=== PATIENT | female | born 1945 | race African-American/Black ===

== ENCOUNTER 2017-11-06 11:14 | Inpatient (IN) | payer BC, OTHER ==
[2017-11-06 11:19] VITALS: BMI 34.3
--- NOTE | 2017-11-06 11:22 | PDOC ---
History of Present Illness <Topher Obrien - Last Filed: 11/06/17 15:25> - General History Source: Patient Exam Limitations: No Limitations - History of Present Illness Initial Comments: 11/06/17 11:53 The patient is a 71 year old female, with a significant past medical history of Atrial Fibrillation (on Diltizem and Coumadin) COPD, DM, HTN, HLD, CAD (s/p 2 stents), Sleep apnea who presents to the emergency department with SOB this morning. Patient reports URI symptoms with productive cough, nasal congestion, clear rhinorrhea and sore throat. Patient reports her symptoms worsened this morning with persistent SOB. Patient reports SOB is worse when talking and exertion. Patient denies any chest pain, palpitations, nausea, diaphoresis, LE edema, headache, dizziness. Patient denies fever, chills, abdominal pain, vomit, diarrhea or constipation. Patient denies dysuria, frequency, urgency or hematuria. Patient denies sick contacts or recent travel. Allergies: codeine, morphine, cephalexin monohydrate Past surgical history: Two stent placement, mitral valve replacement (porcine) Social history: Former smoker (quit 15 years ago) PCP: [place] <Jerrica Casiano - Last Filed: 11/06/17 16:44> - General Chief Complaint: Shortness of Breath Stated Complaint: SOB Time Seen by Provider: 11/06/17 11:21 Past History - Past Medical History Cardiac Disorders: Yes (a.ina) COPD: Yes Diabetes: Yes HTN: Yes Hypercholesterolemia: Yes Other medical history: sleep apnea - Surgical History Cardiac Surgery: Yes (mitral valve replacement, 2 stents) - Suicide/Smoking/Psychosocial Hx Smoking History: Never smoked Information on smoking cessation initiated: No Hx Alcohol Use: No Drug/Substance Use Hx: No Substance Use Type: None <Topher Obrien - Last Filed: 11/06/17 15:25> <Jerrica Casiano - Last Filed: 11/06/17 16:44> - Past Medical History Allergies/Adverse Reactions: Allergies Allergy/AdvReac Type Severity Reaction Status Date / Time cephalexin monohydrate Allergy Verified 11/06/17 11:15 [From Keflex] codeine Allergy Verified 11/06/17 11:15 morphine Allergy Verified 11/06/17 11:15 Home Medications: Ambulatory Orders Atorvastatin Ca [Lipitor] 40 mg PO HS 11/06/17 Diltiazem HCl [Diltiazem 24Hr Cd] 360 mg PO DAILY 11/06/17 Losartan Potassium 25 mg PO DAILY 11/06/17 Metformin HCl 500 mg PO BID 11/06/17 Methimazole 5 mg PO MOFR 11/06/17 Pantoprazole Sodium [Protonix] 40 mg PO DAILY 11/06/17 Propranolol HCl 40 mg PO BID 11/06/17 Ticagrelor [Brilinta] 90 mg PO DAILY 11/06/17 Warfarin Sodium 6 mg PO HS 11/06/17 Review of Systems - Review of Systems Able to Perform ROS?: Yes Comments:: 11/06/17 11:53 GENERAL/CONSTITUTIONAL: No fever or chills. No weakness. HEAD, EYES, EARS, NOSE AND THROAT: No change in vision. No ear pain or discharge. No sore throat. CARDIOVASCULAR: No chest pain. +shortness of breath. RESPIRATORY: + cough. No wheezing, or hemoptysis. GASTROINTESTINAL: No nausea, vomiting, diarrhea or constipation. GENITOURINARY: No dysuria, frequency, or change in urination. MUSCULOSKELETAL: No joint or muscle swelling or pain. No neck or back pain. SKIN: No rash NEUROLOGIC: No headache, vertigo, loss of consciousness, or change in strength/ sensation. ENDOCRINE: No increased thirst. No abnormal weight change. HEMATOLOGIC/LYMPHATIC: No anemia, easy bleeding, or history of blood clots. ALLERGIC/IMMUNOLOGIC: No hives or skin allergy. <Jerrica Casiano - Last Filed: 11/06/17 16:44> *Physical Exam - Vital Signs Last Vital Signs Temp Pulse Resp BP Pulse Ox 97.7 F 108 H 18 133/67 100 11/06/17 11:16 11/06/17 11:16 11/06/17 11:16 11/06/17 11:16 11/06/17 11:16 <Topher Obrien - Last Filed: 11/06/17 15:25> - Vital Signs Last Vital Signs Temp Pulse Resp BP Pulse Ox 97.7 F 108 H 18 133/67 100 11/06/17 11:16 11/06/17 11:16 11/06/17 11:16 11/06/17 11:16 11/06/17 11:16 - Physical Exam Comments: 11/06/17 11:53 GENERAL: Awake, alert, and fully oriented, in no acute distress HEAD: No signs of trauma EYES: PERRLA, EOMI, sclera anicteric, conjunctiva clear ENT: Auricles normal inspection, hearing grossly normal, nares patent, oropharynx clear without exudates. Moist mucosa NECK: +JVD. Normal ROM, supple, no lymphadenopathy, or masses LUNGS: +Rales. Breath sounds equal. No wheezes, and no crackles. HEART: +Irregular irregular.Normal S1 and S2, no murmurs, rubs or gallops ABDOMEN: Soft, nontender, normoactive bowel sounds. No guarding, no rebound. No masses EXTREMITIES: Normal range of motion, no edema. No clubbing or cyanosis. No cords, erythema, or tenderness NEUROLOGICAL: Cranial nerves II through XII grossly intact. Normal speech, normal gait SKIN: Warm, Dry, normal turgor, no rashes or lesions noted. <Jerrica Casiano - Last Filed: 11/06/17 16:44> Heart Score/ECG Review - History History: Moderately suspicious - Electrocardiogram EKG: Non specific repolarization disturbance - Age Age: >/= 65 - Risk Factors Risk Factors Heart Score: Yes Hx Hypercholesterolemia, Yes Hx Hypertension, Yes Hx Diabetes Based on the list above the patient has:: >/=3 risk factors or Hx atherosclerotic disease - Troponin Troponin: </= normal limit - Score Heart Score - Total: 6 <Topher Obrien - Last Filed: 11/06/17 15:25> #1 11/06/17 12:[address] Obrien Atrial flutter with variable AV block <Jerrica Casiano - Last Filed: 11/06/17 16:44> ED Treatment Course - LABORATORY CBC & Chemistry Diagram: 11/06/17 12:00 11/06/17 12:00 <Topher Obrien - Last Filed: 11/06/17 15:25> - LABORATORY CBC & Chemistry Diagram: 11/06/17 12:00 11/06/17 12:00 <Jerrica Casiano - Last Filed: 11/06/17 16:44> Medical Decision Making - Medical Decision Making 11/06/17 15:17 Dr. Jensen paged via phone answering service. Awaiting call back. 11/06/17 15:43 Camila returned the page and the patients case was discussed. CXR IMPRESSION: CHF Reported By: Geno <Jerrica Casiano - Last Filed: 11/06/17 16:44> *DC/Admit/Observation/Transfer - Discharge Dispostion Admit: Yes - Attestations Physician Attestion: 11/06/17 11:22 I, Dr. Topher Obrien, attest that this document has been prepared under my direction and personally reviewed by me in its entirety. I further attest, that it accurately reflects all work, treatment, procedures and medical decision -making performed by me. <Topher Obrien - Last Filed: 11/06/17 15:25> - Attestations Scribe Attestion: 11/06/17 11:54 Documentation prepared by Jerrica Casiano, acting as medical office rep for Topher Obrien DO. <Jerrica Casiano - Last Filed: 11/06/17 16:44> Diagnosis at time of Disposition: CHF (congestive heart failure) Qualifiers: Congestive heart failure type: combined Congestive heart failure chronicity: acute on chronic Qualified Code(s): I50.43 - Acute on chronic combined systolic (congestive) and diastolic (congestive) heart failure Pneumonia Qualifiers: Pneumonia type: due to unspecified organism Laterality: right Lung location: lower lobe of lung Qualified Code(s): J18.1 - Lobar pneumonia, unspecified organism - Discharge Dispostion Condition at time of disposition: Improved
[2017-11-06] MEDS ORDERED: ALBUTEROL SO4 2.5/IPRATROPIUM 0.5 INH SOL 3 ML VIAL.NEB. NEB ONE ×2 (11:38→12:08)
[2017-11-06] MEDS ORDERED: FUROSEMIDE 40 MG/4 ML INJECTABLE VIAL IVPUSH ONE ×2 (11:38→15:16)
[2017-11-06] MEDS ORDERED: methylPREDNISolone NA SUCC 125 MG/2 ML VIAL IVPUSH ONE (11:38)
[2017-11-06] MEDS ORDERED: ALBUTEROL SO4 0.083% IH SOL 2.5 MG/3 ML VIAL.NEB. NEB ONE (11:38)
[2017-11-06] MEDS ORDERED: FUROSEMIDE 40 MG/4 ML INJECTABLE VIAL ONE ×2 (12:08→15:49)
[2017-11-06] MEDS ORDERED: methylPREDNISolone NA SUCC 125 MG/2 ML VIAL ONE (12:08)
[2017-11-06 12:09] LABS: BASOPHIL 0.9 % (0-2.0); MCHC 30.6 g/dl (32.0-36.0); MEAN CELL VOLUME 63.9 fl (80-96); MEAN PLT VOLUME 8.5 fl (7.5-11.1); NEUTROPHILS 80.1 % (42.8-82.8); PLATELET COUNT 781 K/MM3 (134-434); RDW 20.8 % (11.6-15.6); WHITE BLOOD COUNT 15.6 K/mm3 (4.0-10.0)
[2017-11-06 12:13] LABS: URINE APPEARANCE SLCLOUDY; URINE BILIRUBIN NEGATIVE (NEGATIVE); URINE BLOOD NEGATIVE (NEGATIVE); URINE COLOR YELLOW; URINE GLUCOSE (UA) NEGATIVE (NEGATIVE); URINE KETONE NEGATIVE (NEGATIVE); URINE NITRITE NEGATIVE (NEGATIVE); URINE PROTEIN NEGATIVE (NEGATIVE)
[2017-11-06 12:17] LABS: MCH 19.5 pg (25.7-33.7)
[2017-11-06 12:25] LABS: ALBUMIN 3.3 g/dl (3.4-5.0); ANION GAP 5 (8-16); CALCIUM 8.9 mg/dL (8.5-10.1); CO2 28 mmol/L (21-32); GLUCOSE,RANDOM 84 mg/dL (74-106)
[2017-11-06 12:29] LABS: BILIRUBIN,TOTAL 0.6 mg/dL (0.2-1.0); CREATININE 1.2 mg/dL (0.55-1.02); SGOT/AST 15 U/L (15-37); SGPT/ALT 19 U/L (12-78); TOT PROT 7.2 g/dl (6.4-8.2)
[2017-11-06 12:30] LABS: INR 3.74 (0.82-1.09); PROTHROMBIN TIME (PATIENT) 42.3 SEC (9.98-11.88)
[2017-11-06 12:32] LABS: ALK PHOS 101 U/L (45-117); CPK 85 IU/L (26-192); TROPONIN I < 0.02 ng/ml (0.00-0.05)
[2017-11-06 13:49] LABS: ANISOCYTOSIS 3+; HYPOCHROMIA 2+; MACROCYTOSIS 1+; MICROCYTOSIS 2+; OVALOCYTE 2+; PLATELET ESTIMATE INCREASED; POLYCHROMASIA 1+; TARGET CELLS 3+
--- NOTE | 2017-11-06 14:50 | EKG ---
Test Reason : Blood Pressure : / mmHG Vent. Rate : 103 BPM Atrial Rate : 237 BPM P-R Int : 000 ms QRS Dur : 082 ms QT Int : 380 ms P-R-T Axes : 000 018 091 degrees QTc Int : 497 ms ATRIAL FLUTTER WITH VARIABLE A-V BLOCK ABNORMAL ECG WHEN COMPARED WITH ECG OF 09-MAY-2010 15:07, ATRIAL FLUTTER HAS REPLACED SINUS RHYTHM Confirmed by GISELE WARD, VELVET ([id number]) on 11/06/2017 2:50:11 PM Referred By: Confirmed By:VELVET JAQUEZ MD
[2017-11-06] MEDS ORDERED: CEFTRIAXONE 1 GM in DEXTROSE 5%-WATER - 50 ML IVPB ONE (15:16)
[2017-11-06] MEDS ORDERED: AZITHROMYCIN IVPB 500 MG in DEXTROSE 5%-WATER - 250 ML IVPB ONE (15:16)
[2017-11-06] MEDS ORDERED: AZITHROMYCIN IVPB 250 ML IVPB ONE (15:48)
[2017-11-06] MEDS ORDERED: CEFTRIAXONE 1 GM/50 ML BAG ONE (15:48)
[2017-11-06 15:55] LABS: URINE LEUK ESTERASE NEGATIVE (NEGATIVE)
--- NOTE | 2017-11-06 21:46 | HP ---
Admitting History and Physical - Primary Care Physician PCP: Reema Jensen - Admission History of Present Illness: The patient is a 71 year old female, with a significant past medical history of Atrial Fibrillation (on Diltizem and Coumadin) COPD, DM, HTN, HLD, CAD (s/p 2 stents), Sleep apnea who presents to the emergency department with SOB this morning. Patient reports URI symptoms with productive cough, nasal congestion, clear rhinorrhea and sore throat. Patient reports her symptoms worsened this morning with persistent SOB. Patient reports SOB is worse when talking and exertion. - Past Medical History Cardiovascular: Yes: HTN, Hyperlipdemia Pulmonary: Yes: COPD Endocrine: Yes: Diabetes Mellitus - Smoking History Smoking history: Never smoked - Alcohol/Substance Use Hx Alcohol Use: No Home Medications - Allergies Allergies/Adverse Reactions: Allergies Allergy/AdvReac Type Severity Reaction Status Date / Time cephalexin monohydrate Allergy Verified 11/06/17 11:15 [From Keflex] codeine Allergy Verified 11/06/17 11:15 morphine Allergy Verified 11/06/17 11:15 - Home Medications Home Medications: Ambulatory Orders Atorvastatin Ca [Lipitor] 40 mg PO HS 11/06/17 Diltiazem HCl [Diltiazem 24Hr Cd] 360 mg PO DAILY 11/06/17 Losartan Potassium 25 mg PO DAILY 11/06/17 Metformin HCl 500 mg PO BID 11/06/17 Methimazole 5 mg PO MOFR 11/06/17 Pantoprazole Sodium [Protonix] 40 mg PO DAILY 11/06/17 Propranolol HCl 40 mg PO BID 11/06/17 Ticagrelor [Brilinta] 90 mg PO DAILY 11/06/17 Warfarin Sodium 6 mg PO HS 11/06/17 Physical Examination Vital Signs: Vital Signs Temperature 98.7 F 11/06/17 20:24 Pulse Rate 86 11/06/17 20:24 Respiratory Rate 20 11/06/17 20:24 Blood Pressure 146/84 11/06/17 20:24 O2 Sat by Pulse Oximetry (%) 97 11/06/17 20:24 Constitutional: Yes: No Distress HENT: Yes: Atraumatic Neck: Yes: Supple Cardiovascular: Yes: Regular Rate and Rhythm Respiratory: Yes: Rhonchi Gastrointestinal: Yes: Normal Bowel Sounds Extremities: Yes: WNL Neurological: Yes: Alert, Oriented Labs: CBC, BMP 11/06/17 12:00 11/06/17 12:00 Problem List - Problems (1) CHF (congestive heart failure) Assessment/Plan: on meds iv diuretics Code(s): I50.9 - HEART FAILURE, UNSPECIFIED Qualifiers: Congestive heart failure type: combined Congestive heart failure chronicity : acute on chronic Qualified Code(s): I50.43 - Acute on chronic combined systolic (congestive) and diastolic (congestive) heart failure (2) Pneumonia Assessment/Plan: on abx...emperic cxr congestion Code(s): J18.9 - PNEUMONIA, UNSPECIFIED ORGANISM Qualifiers: Pneumonia type: due to unspecified organism Laterality: right Lung location: lower lobe of lung Qualified Code(s): J18.1 - Lobar pneumonia, unspecified organism (3) Atrial fibrillation and flutter Assessment/Plan: meds getting adjusted by cardiology Code(s): I48.91 - UNSPECIFIED ATRIAL FIBRILLATION; I48.92 - UNSPECIFIED ATRIAL FLUTTER (4) Diabetes mellitus Assessment/Plan: on meds stable Code(s): E11.9 - TYPE 2 DIABETES MELLITUS WITHOUT COMPLICATIONS Qualifiers: Diabetes mellitus type: type 2 Diabetes mellitus complication status: without complication Diabetes mellitus vermin exterminator insulin use: without half-way use Qualified Code(s): E11.9 - Type 2 diabetes mellitus without complications (5) HTN (hypertension) Code(s): I10 - ESSENTIAL (PRIMARY) HYPERTENSION Qualifiers: Hypertension type: essential hypertension Qualified Code(s): I10 - Essential (primary) hypertension Assessment/Plan Laboratory Tests 11/06/17 11/06/17 11/06/17 12:00 12:00 12:00 WBC 15.6 H RBC 6.79 H Hgb 13.3 Hct 43.4 MCV 63.9 L MCH 19.5 L MCHC 30.6 L RDW 20.8 H Plt Count 781 H MPV 8.5 Neutrophils % 80.1 Lymphocytes % 8.8 Monocytes % 9.2 Eosinophils % 1.0 Basophils % 0.9 Hypochromia 2+ Platelet Estimate Increased Polychromasia 1+ Anisocytosis 3+ Microcytosis 2+ Macrocytosis 1+ Target Cells 3+ Ovalocytes 2+ PT with INR 42.30 H INR 3.74 H Sodium 139 Potassium 4.5 Chloride 106 Carbon Dioxide 28 Anion Gap 5 L BUN 21 H Creatinine 1.2 H Creat Clearance w eGFR 44.54 Random Glucose 84 Lactic Acid Calcium 8.9 Total Bilirubin 0.6 AST 15 ALT 19 Alkaline Phosphatase 101 Creatine Kinase 85 Troponin I < 0.02 B-Natriuretic Peptide Total Protein 7.2 Albumin 3.3 L Urine Color Urine Appearance Urine pH Ur Specific [place] Urine Protein Urine Glucose (UA) Urine Ketones Urine Blood Urine Nitrite Urine Bilirubin Urine Urobilinogen Ur Leukocyte Esterase 11/06/17 11/06/17 11/06/17 12:00 12:00 12:00 WBC RBC Hgb Hct MCV MCH MCHC RDW Plt Count MPV Neutrophils % Lymphocytes % Monocytes % Eosinophils % Basophils % Hypochromia Platelet Estimate Polychromasia Anisocytosis Microcytosis Macrocytosis Target Cells Ovalocytes PT with INR INR Sodium Potassium Chloride Carbon Dioxide Anion Gap BUN Creatinine Creat Clearance w eGFR Random Glucose Lactic Acid 1.7 Calcium Total Bilirubin AST ALT Alkaline Phosphatase Creatine Kinase Troponin I B-Natriuretic Peptide 2018.47 H Total Protein Albumin Urine Color Yellow Urine Appearance Slcloudy Urine pH 5.0 Ur Specific [place] 1.017 Urine Protein Negative Urine Glucose (UA) Negative Urine Ketones Negative Urine Blood Negative Urine Nitrite Negative Urine Bilirubin Negative Urine Urobilinogen 2.0 H Ur Leukocyte Esterase Negative Active Medications Generic Name Dose Route Start Last Admin Trade Name Freq PRN Reason Stop Dose Admin Atorvastatin Calcium 40 mg 11/06/17 22:00 11/08/17 22:12 Lipitor - PO 40 mg HS BLANKA Administration Diltiazem HCl 360 mg 11/07/17 10:00 11/09/17 09:24 Cardizem Cd - PO 360 mg DAILY BLANKA Administration Furosemide 40 mg 11/08/17 10:45 11/09/17 09:25 Lasix Injection - IVPUSH 40 mg DAILY BLANKA Administration Doxycycline Hyclate 100 mg/ 100 mls @ 50 mls/hr 11/09/17 17:00 11/09/17 18:36 Dextrose IVPB 50 mls/hr BID BLANKA Administration Losartan Potassium 25 mg 11/07/17 10:00 11/09/17 09:25 Cozaar - PO 25 mg DAILY BLANKA Administration Metformin HCl 500 mg 11/07/17 07:00 11/09/17 16:52 Glucophage - PO 500 mg BIDAC BLANKA Administration Methimazole 5 mg 11/07/17 10:00 11/09/17 09:25 Tapazole - PO 5 mg MoTuWeThFr@1000 BLANKA Administration Pantoprazole Sodium 40 mg 11/07/17 10:00 11/09/17 09:25 Protonix - PO 40 mg DAILY BLANKA Administration Sotalol HCl 80 mg 11/09/17 10:45 11/09/17 17:27 Betapace - PO 80 mg BID BLANKA Administration Ticagrelor 90 mg 11/06/17 22:30 11/09/17 09:23 Brilinta - PO 90 mg BID BLANKA Administration Warfarin Sodium 3 mg 11/07/17 18:00 11/09/17 17:27 Coumadin - PO 3 mg DAILY@1800 BLANKA Administration
[2017-11-06] MEDS ORDERED: WARFARIN NA 3 MG TABLET PO SCH (22:00)
[2017-11-06] MEDS: ATORVASTATIN CA 40 MG TABLET (FP) PO SCH (22:25)
[2017-11-06] MEDS: TICAGRELOR 90 MG TABLET PO SCH (22:56)
[2017-11-06] MEDS: PROPRANOLOL HCL 40 MG TABLET PO SCH (22:56)
[2017-11-06 23:30] LABS: PROTHROMBIN TIME (PATIENT) 48.4 SEC (9.98-11.88)
[2017-11-06 23:31] LABS: INR 4.28 (0.82-1.09)
[2017-11-07] MEDS: metFORMIN HCL 500 MG TABLET (FP) PO SCH ×2 (08:03→17:40)
[2017-11-07 08:04] LABS: MEAN CELL VOLUME 63.6 fl (80-96); MEAN PLT VOLUME 8.4 fl (7.5-11.1); PLATELET COUNT 645 K/MM3 (134-434); RDW 21.1 % (11.6-15.6); WHITE BLOOD COUNT 20.3 K/mm3 (4.0-10.0)
[2017-11-07 08:05] LABS: ANION GAP 9 (8-16); CALCIUM 8.8 mg/dL (8.5-10.1); CO2 25 mmol/L (21-32); GLUCOSE,RANDOM 150 mg/dL (74-106); SGPT/ALT 17 U/L (12-78)
[2017-11-07 08:08] LABS: ALK PHOS 91 U/L (45-117); BILIRUBIN,TOTAL 0.5 mg/dL (0.2-1.0); CREATININE 0.9 mg/dL (0.55-1.02); SGOT/AST 11 U/L (15-37)
[2017-11-07 08:10] LABS: MCH 19.7 pg (25.7-33.7)
[2017-11-07 08:40] LABS: INR 3.84 (0.82-1.09); PROTHROMBIN TIME (PATIENT) 43.4 SEC (9.98-11.88)
[2017-11-07] MEDS ORDERED: PT OWN MED DRAWER 7, Y5N ONE (09:21)
[2017-11-07] MEDS: PANTOPRAZOLE 40 MG TABLET (FP) PO SCH (09:35)
[2017-11-07] MEDS: LOSARTAN POTASSIUM 25 MG TABLET PO SCH (09:36)
[2017-11-07] MEDS: PROPRANOLOL HCL 40 MG TABLET PO SCH ×2 (09:36→22:17)
[2017-11-07] MEDS: METHIMAZOLE 5 MG TABLET (FP) PO SCH (09:36)
[2017-11-07] MEDS: LEVOFLOXACIN 500 MG IVPB 500 MG/100 ML BAG IVPB SCH (09:36)
[2017-11-07] MEDS: TICAGRELOR 90 MG TABLET PO SCH ×2 (09:36→22:17)
[2017-11-07 10:41] LABS: METAMYELOCYTE 0 % (0-2); MYELOCYTE 0 % (0-2); PLATELET ESTIMATE INCREASED; REACTIVE LYMPHOCYTES 0 % (0-80)
--- NOTE | 2017-11-07 10:48 | CON.CARD ---
Consult Consult Specialty:: Cardiology Referred by:: Dr. Jensen Reason for Consultation:: Cardiac evaluation - History of Present Illness Chief Complaint: Shortness of breath History of Present Illness: Patient is a 71 year old female with underlying history of hypertension, hypercholesterolemia, diabetes mellitus, obstructive sleep apnea, COPD, coronary artery disease with previous PCI/stent, mitral valve regurgitation s/p MVR with bioprosthesis (1 year ago in [place]) and atrial fibrillation/flutter with previous attempt at synchronized cardioversions. She was seen in our practice 7 years ago before she relocated to [place]. She sees Dr. Rashard Boyle (geriatric personal care aide) in [place]. She presents to [facility] with shortness of breath, productive cough, nasal congestion and sore throat. She was also found to be in atrial flutter with periods of rapid ventricular response. She complains of intermittent chest tightness. She denies fever or chills. She denies paroxysmal nocturnal dyspnea or orthopnea. She denies nausea, vomiting, diarrhea or abdominal pain. She states that she has been scheduled to see an repair specialist in December of 2017 for possible ablation. - History Source History Provided By: Patient, Medical Record Limitations to Obtaining History: No Limitations - Past Medical History Cardio/Vascular: Yes: AFIB, CAD, CHF, HTN, Hyperlipdemia, Mitral Insufficiency, Other (MVR with bioprosthesis) Pulmonary: Yes: COPD, Sleep Apnea Endocrine: Yes: Diabetes Mellitus - Past Surgical History Past Surgical History: Yes: Stent, Valve Replacement - Alcohol/Substance Use Hx Alcohol Use: No - Smoking History Smoking history: Never smoked Home Medications - Allergies Allergies/Adverse Reactions: Allergies Allergy/AdvReac Type Severity Reaction Status Date / Time cephalexin monohydrate Allergy Verified 11/06/17 11:15 [From Keflex] codeine Allergy Verified 11/06/17 11:15 morphine Allergy Verified 11/06/17 11:15 - Home Medications Home Medications: Ambulatory Orders Atorvastatin Ca [Lipitor] 40 mg PO HS 11/06/17 Diltiazem HCl [Diltiazem 24Hr Cd] 360 mg PO DAILY 11/06/17 Losartan Potassium 25 mg PO DAILY 11/06/17 Metformin HCl 500 mg PO BID 11/06/17 Methimazole 5 mg PO MOFR 11/06/17 Pantoprazole Sodium [Protonix] 40 mg PO DAILY 12/11/17 Propranolol HCl 40 mg PO BID 11/06/17 Ticagrelor [Brilinta] 90 mg PO DAILY 11/06/17 Warfarin Sodium 6 mg PO HS 11/06/17 Review of Systems - Review of Systems Constitutional: denies: Chills, Fever Cardiovascular: reports: Chest Pain, Palpitations, Shortness of Breath Respiratory: reports: Cough, SOB, SOB on Exertion. denies: Hemoptysis, Orthopnea, PND Gastrointestinal: denies: Abdominal Pain, Constipation, Diarrhea, Melena, Nausea , Rectal Bleeding, Vomiting Genitourinary: denies: Dysuria, Hematuria Musculoskeletal: denies: Joint Pain Neurological: denies: Dizziness, Headache, Seizure, Syncope, Weakness Vital Signs: Vital Signs Temperature 98.2 F 11/07/17 08:00 Pulse Rate 114 H 11/07/17 08:00 Respiratory Rate 16 11/07/17 08:00 Blood Pressure 116/68 11/07/17 08:00 O2 Sat by Pulse Oximetry (%) 97 11/07/17 03:00 Eyes: Yes: PERRL HENT: Yes: Atraumatic Neck: Yes: Supple Respiratory: Yes: Diminished Gastrointestinal: Yes: Normal Bowel Sounds, Soft. No: Tenderness Cardiovascular: Yes: Tachycardia, Pulse Irregular JVD: No Carotid Bruit: No PMI: Non-Displaced Heart Sounds: Yes: S1, S2. No: Gallop Murmur: Yes: Systolic Murmur, Grade 1 Edema: No - Other Data Labs, Other Data: CBC, BMP 11/07/17 05:05 11/07/17 05:05 INR, PTT INR 3.84 (0.82-1.09) H 11/07/17 08:00 Troponin, BNP 11/06/17 11/06/17 12:00 12:00 Troponin I < 0.02 B-Natriuretic Peptide 2018.47 H Laboratory Results - last 24 hr 11/06/17 11/06/17 11/07/17 12:00 23:10 05:05 WBC 20.3 H D RBC 6.54 H Hgb 12.9 Hct 41.6 MCV 63.6 L MCH 19.7 L MCHC 31.0 L RDW 21.1 H Plt Count 645 H MPV 8.4 Neutrophils % No Result Required. Lymphocytes % No Result Required. PT with INR 48.40 H INR 4.28 H* Sodium Potassium Chloride Carbon Dioxide Anion Gap BUN Creatinine Creat Clearance w eGFR POC Glucometer Random Glucose Calcium Total Bilirubin AST ALT Alkaline Phosphatase Total Protein Albumin Ur Leukocyte Esterase Negative 11/07/17 11/07/17 11/07/17 05:05 07:50 08:00 WBC RBC Hgb Hct MCV MCH MCHC RDW Plt Count MPV Neutrophils % Lymphocytes % PT with INR 43.40 H INR 3.84 H Sodium 137 Potassium 4.4 Chloride 103 Carbon Dioxide 25 Anion Gap 9 BUN 22 H Creatinine 0.9 D Creat Clearance w eGFR > 60 POC Glucometer 145 Random Glucose 150 H D Calcium 8.8 Total Bilirubin 0.5 AST 11 L D ALT 17 Alkaline Phosphatase 91 Total Protein 7.0 Albumin 3.0 L Ur Leukocyte Esterase Atrial flutter with rapid ventricular response Echo: Pending Imaging - Results Chest X-ray: Report Reviewed (CHF) EKG: Report Reviewed Problem List - Problems (1) CAD (coronary artery disease) Code(s): I25.10 - ATHSCL HEART DISEASE OF [place] CORONARY ARTERY W/O ANG PCTRS Qualifiers: Coronary Disease-Associated Artery/Lesion type: [place] artery [place] vs. transplanted heart: [place] heart Associated angina: without angina Qualified Code(s): I25.10 - Atherosclerotic heart disease of [place] coronary artery without angina pectoris (2) History of percutaneous coronary intervention Code(s): Z98.890 - OTHER SPECIFIED POSTPROCEDURAL STATES (3) HTN (hypertension) Code(s): I10 - ESSENTIAL (PRIMARY) HYPERTENSION Qualifiers: Hypertension type: essential hypertension Qualified Code(s): I10 - Essential (primary) hypertension (4) Hypercholesterolemia Code(s): E78.00 - PURE HYPERCHOLESTEROLEMIA, UNSPECIFIED (5) Diabetes mellitus Code(s): E11.9 - TYPE 2 DIABETES MELLITUS WITHOUT COMPLICATIONS Qualifiers: Diabetes mellitus type: type 2 Diabetes mellitus complication status: without complication Diabetes mellitus long term acute care registered nurse insulin use: without correction use Qualified Code(s): E11.9 - Type 2 diabetes mellitus without complications (6) Obstructive sleep apnea Code(s): G47.33 - OBSTRUCTIVE SLEEP APNEA (ADULT) (PEDIATRIC) (7) COPD (chronic obstructive pulmonary disease) Code(s): J44.9 - CHRONIC OBSTRUCTIVE PULMONARY DISEASE, UNSPECIFIED Qualifiers: COPD type: unspecified COPD Qualified Code(s): J44.9 - Chronic obstructive pulmonary disease, unspecified (8) Hyperthyroidism Code(s): E05.90 - THYROTOXICOSIS, UNSP WITHOUT THYROTOXIC CRISIS OR STORM (9) History of mitral valve replacement with bioprosthetic valve Code(s): Z95.3 - PRESENCE OF XENOGENIC HEART VALVE (10) Atrial fibrillation and flutter Code(s): I48.91 - UNSPECIFIED ATRIAL FIBRILLATION; I48.92 - UNSPECIFIED ATRIAL FLUTTER (11) CHF (congestive heart failure) Code(s): I50.9 - HEART FAILURE, UNSPECIFIED Qualifiers: Congestive heart failure type: combined Congestive heart failure chronicity : acute on chronic Qualified Code(s): I50.43 - Acute on chronic combined systolic (congestive) and diastolic (congestive) heart failure (12) Pneumonia Code(s): J18.9 - PNEUMONIA, UNSPECIFIED ORGANISM Qualifiers: Pneumonia type: due to unspecified organism Laterality: right Lung location: lower lobe of lung Qualified Code(s): J18.1 - Lobar pneumonia, unspecified organism Assessment/Plan 1. Atrial flutter with rapid ventricular response, previous failed cardioversion attempt 2. Clinical presentation suggests class 2 NYHA classification LV failure due to above rapid heart rate 3. Coronary artery disease. s/p PCI/stent, angina pectoris 4. Mitral valve disease s/p MVR with bioprosthesis 5. Hypertension/hypertensive cardiovascular disease 6. Hypercholesterolemia 7. Type 2 diabetes mellitus 8. COPD 9. Obstructive sleep apnea 10. Leukocytosis with possible URI vs. pneumonia 11. Hyperthyrodism PLAN: 1. Continue Coumadin and keep INR 2-3 (currently supratherapeutic) 2. Continue rate control with Cardizem CD. Patient is on Inderal, but would consider Sotalol instead if clinically is able to tolerate. Will discuss with the Product Test Specialist in [place] who takes care of her. 3. If initiated on Sotalol, she would need to continue with telemetry monitoring and obtain daily ECG to follow QTc. Further options of repeat synchronized cardioversion may be considered 4. Continue ASA and Brilinta (if PCI is over 1 year, would change it to maintenance dose of 60 mg BID) 5. Continue Losartan 6. Continue Lipitor 7. Sleep apnea management 8. Continue with Tapazole for hyperthyroidism and check TFT 9. Antibiotic coverage Discussed with Dr. Rashard Boyle Further plans are to follow Ramirez Martinez MD
--- NOTE | 2017-11-07 16:07 | CON.ID ---
Consult - History of Present Illness History of Present Illness: Asked to evaluate this 71 year old female, with a significant past medical history of DM, HTN, AFIB, COPD, HLD, CAD s/p stents, sleep apnea who came to the ER with worsening shortness of breath yesterday morning. She denies productive cough, fever, or chills. Had some sore throat but to me denies rhinorrhea, nasal congestion. She normally resides in [place] but came to visit her daughter 2 days ago. Pt denies any sick contacts. In the ER labwork revealed leukocytosis (wbc 15K) and today is more elevated. Remains afebrile. States she is short of breath but is in no acute distress. SOB worse when lying flat. No other specific complaints. She has been started on IV antibiotics and steroids. - History Source History Provided By: Patient Limitations to Obtaining History: No Limitations - Past Medical History Cardio/Vascular: Yes: AFIB, CAD, CHF, HTN, Hyperlipdemia, Mitral Insufficiency, Other (MVR with bioprosthesis) Pulmonary: Yes: COPD, Sleep Apnea Endocrine: Yes: Diabetes Mellitus - Past Surgical History Past Surgical History: Yes: Stent, Valve Replacement - Alcohol/Substance Use Hx Alcohol Use: No - Smoking History Smoking history: Former smoker (quit 15 yrs ago) Have you smoked in the past 12 months: No - Social History History of Recent Travel: Yes (lives in [place], came to visit daughter) Home Medications - Allergies Allergies/Adverse Reactions: Allergies Allergy/AdvReac Type Severity Reaction Status Date / Time cephalexin monohydrate Allergy Verified 11/06/17 11:15 [From Keflex] codeine Allergy Verified 11/06/17 11:15 morphine Allergy Verified 11/06/17 11:15 - Home Medications Home Medications: Ambulatory Orders Atorvastatin Ca [Lipitor] 40 mg PO HS 11/06/17 Diltiazem HCl [Diltiazem 24Hr Cd] 360 mg PO DAILY 11/06/17 Losartan Potassium 25 mg PO DAILY 11/06/17 Metformin HCl 500 mg PO BID 11/06/17 Methimazole 5 mg PO MOFR 11/06/17 Pantoprazole Sodium [Protonix] 40 mg PO DAILY 11/06/17 Propranolol HCl 40 mg PO BID 11/06/17 Ticagrelor [Brilinta] 90 mg PO DAILY 12/11/17 Warfarin Sodium 6 mg PO HS 11/06/17 Review of Systems - Review of Systems Constitutional: reports: No Symptoms HENT: reports: Throat Pain Neck: reports: No Symptoms Cardiovascular: reports: No Symptoms Respiratory: reports: SOB Gastrointestinal: reports: No Symptoms Genitourinary: reports: No Symptoms Integumentary: reports: No Symptoms Neurological: reports: No Symptoms Endocrine: reports: No Symptoms Hematology/Lymphatic: reports: No Symptoms Psychiatric: reports: No Symptoms Physical Exam Vital Signs: Vital Signs Temperature 98.3 F 11/07/17 15:30 Pulse Rate 61 11/07/17 15:30 Respiratory Rate 18 11/07/17 15:30 Blood Pressure 97/58 11/07/17 15:30 O2 Sat by Pulse Oximetry (%) 97 11/07/17 11:00 Constitutional: Yes: No Distress, Calm HENT: Yes: WNL Neck: Yes: Supple Cardiovascular: Yes: Tachycardia Respiratory: Yes: CTA Bilaterally Gastrointestinal: Yes: Normal Bowel Sounds, Soft Renal/: Yes: WNL Musculoskeletal: Yes: WNL Extremities: Yes: WNL Integumentary: Yes: WNL Neurological: Yes: Alert, Oriented Labs: CBC, BMP 11/07/17 05:05 11/07/17 05:05 Urine Cultures - no growth Blood cultures - no growth in 24h Imaging - Results X-ray: Report Reviewed (increased interstitial markings, pulm congestion) Problem List - Problems (1) Atrial fibrillation and flutter Code(s): I48.91 - UNSPECIFIED ATRIAL FIBRILLATION; I48.92 - UNSPECIFIED ATRIAL FLUTTER (2) CAD (coronary artery disease) Code(s): I25.10 - ATHSCL HEART DISEASE OF [place] CORONARY ARTERY W/O ANG PCTRS Qualifiers: Coronary Disease-Associated Artery/Lesion type: [place] artery [place] vs. transplanted heart: [place] heart Associated angina: without angina Qualified Code(s): I25.10 - Atherosclerotic heart disease of [place] coronary artery without angina pectoris (3) CHF (congestive heart failure) Code(s): I50.9 - HEART FAILURE, UNSPECIFIED Qualifiers: Congestive heart failure type: combined Congestive heart failure chronicity : acute on chronic Qualified Code(s): I50.43 - Acute on chronic combined systolic (congestive) and diastolic (congestive) heart failure (4) COPD (chronic obstructive pulmonary disease) Code(s): J44.9 - CHRONIC OBSTRUCTIVE PULMONARY DISEASE, UNSPECIFIED Qualifiers: COPD type: unspecified COPD Qualified Code(s): J44.9 - Chronic obstructive pulmonary disease, unspecified (5) Diabetes mellitus Code(s): E11.9 - TYPE 2 DIABETES MELLITUS WITHOUT COMPLICATIONS Qualifiers: Diabetes mellitus type: type 2 Diabetes mellitus complication status: without complication Diabetes mellitus intermediate insulin use: without intermediate use Qualified Code(s): E11.9 - Type 2 diabetes mellitus without complications (6) HTN (hypertension) Code(s): I10 - ESSENTIAL (PRIMARY) HYPERTENSION Qualifiers: Hypertension type: essential hypertension Qualified Code(s): I10 - Essential (primary) hypertension (7) History of mitral valve replacement with bioprosthetic valve Code(s): Z95.3 - PRESENCE OF XENOGENIC HEART VALVE (8) Hypercholesterolemia Code(s): E78.00 - PURE HYPERCHOLESTEROLEMIA, UNSPECIFIED (9) Obstructive sleep apnea Code(s): G47.33 - OBSTRUCTIVE SLEEP APNEA (ADULT) (PEDIATRIC) Assessment/Plan 71 y.o. female with CAD, HTN, DM, HLD, valve replacement, COPD, AFIB presenting with progressive shortness of breath, leukocytosis -- Possible PNA, more likely CHF -- continue Levaquin for now, monitor wbc trend -- on lasix, solumedrol cont. monitor closely will f/u Thank you
[2017-11-07] MEDS: WARFARIN NA 3 MG TABLET PO SCH (17:01)
--- NOTE | 2017-11-07 20:02 | PN ---
Progress Note, Physician History of Present Illness: no complaints - Current Medication List Current Medications: Active Medications Atorvastatin Calcium (Lipitor -) 40 mg PO HS [facility] Last Admin: 11/06/17 22:25 Dose: 40 mg Diltiazem HCl (Cardizem Cd -) 360 mg PO DAILY [facility] Last Admin: 11/07/17 09:35 Dose: 360 mg Levofloxacin (Levaquin 500 Mg Premixed Ivpb -) 500 mg in 100 mls @ 100 mls/hr IVPB DAILY [facility] Last Admin: 11/07/17 09:36 Dose: 100 mls/hr Losartan Potassium (Cozaar -) 25 mg PO DAILY [facility] Last Admin: 11/07/17 09:36 Dose: 25 mg Metformin HCl (Glucophage -) 500 mg PO BIDAC [facility] Last Admin: 11/07/17 17:40 Dose: 500 mg Methimazole (Tapazole -) 5 mg PO MoTuWeThFr@1000 [facility] Last Admin: 11/07/17 09:36 Dose: 5 mg Pantoprazole Sodium (Protonix -) 40 mg PO DAILY [facility] Last Admin: 11/07/17 09:35 Dose: 40 mg Propranolol HCl (Inderal -) 40 mg PO BID [facility] Last Admin: 11/07/17 09:36 Dose: 40 mg Ticagrelor (Brilinta -) 90 mg PO BID [facility] Last Admin: 11/07/17 09:36 Dose: 90 mg Warfarin Sodium (Coumadin -) 3 mg PO DAILY@1800 [facility] Last Admin: 11/07/17 17:01 Dose: Not Given - Objective Vital Signs: Vital Signs Temperature 97.6 F 11/07/17 17:00 Pulse Rate 62 11/07/17 17:00 Respiratory Rate 20 11/07/17 17:00 Blood Pressure 126/62 11/07/17 17:00 O2 Sat by Pulse Oximetry (%) 97 11/07/17 11:00 Constitutional: Yes: No Distress HENT: Yes: Atraumatic Neck: Yes: Supple Cardiovascular: Yes: Regular Rate and Rhythm Respiratory: Yes: CTA Bilaterally Gastrointestinal: Yes: Normal Bowel Sounds Extremities: Yes: WNL Neurological: Yes: Alert, Oriented Labs: CBC, BMP 11/07/17 05:05 11/07/17 05:05 INR, PTT INR 3.84 (0.82-1.09) H 11/07/17 08:00 Problem List - Problems (1) CHF (congestive heart failure) Assessment/Plan: on meds iv diuretics Code(s): I50.9 - HEART FAILURE, UNSPECIFIED Qualifiers: Congestive heart failure type: combined Congestive heart failure chronicity : acute on chronic Qualified Code(s): I50.43 - Acute on chronic combined systolic (congestive) and diastolic (congestive) heart failure (2) Pneumonia Assessment/Plan: on abx...emperic Code(s): J18.9 - PNEUMONIA, UNSPECIFIED ORGANISM Qualifiers: Pneumonia type: due to unspecified organism Laterality: right Lung location: lower lobe of lung Qualified Code(s): J18.1 - Lobar pneumonia, unspecified organism (3) Atrial fibrillation and flutter Assessment/Plan: meds getting adjusted by cardiology Code(s): I48.91 - UNSPECIFIED ATRIAL FIBRILLATION; I48.92 - UNSPECIFIED ATRIAL FLUTTER (4) CAD (coronary artery disease) Code(s): I25.10 - ATHSCL HEART DISEASE OF [place] CORONARY ARTERY W/O ANG PCTRS Qualifiers: Coronary Disease-Associated Artery/Lesion type: [place] artery [place] vs. transplanted heart: [place] heart Associated angina: without angina Qualified Code(s): I25.10 - Atherosclerotic heart disease of [place] coronary artery without angina pectoris (5) COPD (chronic obstructive pulmonary disease) Code(s): J44.9 - CHRONIC OBSTRUCTIVE PULMONARY DISEASE, UNSPECIFIED Qualifiers: COPD type: unspecified COPD Qualified Code(s): J44.9 - Chronic obstructive pulmonary disease, unspecified (6) Diabetes mellitus Code(s): E11.9 - TYPE 2 DIABETES MELLITUS WITHOUT COMPLICATIONS Qualifiers: Diabetes mellitus type: type 2 Diabetes mellitus complication status: without complication Diabetes mellitus terminal worker insulin use: without chcf use Qualified Code(s): E11.9 - Type 2 diabetes mellitus without complications (7) HTN (hypertension) Assessment/Plan: on meds stable Code(s): I10 - ESSENTIAL (PRIMARY) HYPERTENSION Qualifiers: Hypertension type: essential hypertension Qualified Code(s): I10 - Essential (primary) hypertension
[2017-11-07] MEDS: ATORVASTATIN CA 40 MG TABLET (FP) PO SCH (22:17)
[2017-11-07 22:49] LABS: INR 3.6 (0.82-1.09); PROTHROMBIN TIME (PATIENT) 40.7 SEC (9.98-11.88)
[2017-11-08] MEDS: metFORMIN HCL 500 MG TABLET (FP) PO SCH ×2 (07:05→17:11)
[2017-11-08 08:20] LABS: BASOPHIL 0.5 % (0-2.0); EOSINOPHIL 0.5 % (0-4.5); MCHC 31.4 g/dl (32.0-36.0); MEAN CELL VOLUME 63.3 fl (80-96); MEAN PLT VOLUME 8.5 fl (7.5-11.1); NEUTROPHILS 85.8 % (42.8-82.8); PLATELET COUNT 731 K/MM3 (134-434); RDW 21.1 % (11.6-15.6); WHITE BLOOD COUNT 19.8 K/mm3 (4.0-10.0)
[2017-11-08 08:26] LABS: MCH 19.9 pg (25.7-33.7)
[2017-11-08 08:49] LABS: ANION GAP 9 (8-16); CALCIUM 9.3 mg/dL (8.5-10.1); CO2 24 mmol/L (21-32); GLUCOSE,RANDOM 96 mg/dL (74-106)
[2017-11-08] MEDS ORDERED: PT OWN MED DRAWER 7, Y5N ONE ×2 (08:58→22:10)
[2017-11-08] MEDS: PANTOPRAZOLE 40 MG TABLET (FP) PO SCH (09:22)
[2017-11-08] MEDS: METHIMAZOLE 5 MG TABLET (FP) PO SCH (09:22)
[2017-11-08] MEDS: LOSARTAN POTASSIUM 25 MG TABLET PO SCH (09:22)
[2017-11-08] MEDS: LEVOFLOXACIN 500 MG IVPB 500 MG/100 ML BAG IVPB SCH (09:24)
[2017-11-08 09:42] LABS: ANISOCYTOSIS 3+; HYPOCHROMIA 0; MACROCYTOSIS 0; MICROCYTOSIS 3+; PLATELET ESTIMATE INCREASED; POIKILOCYTOSIS 2+; POLYCHROMASIA 3+; TARGET CELLS 1+
--- NOTE | 2017-11-08 10:25 | PN ---
Progress Note, Physician History of Present Illness: Dyspnea, palpitations without chest tightness, in rapid aflutter. - Current Medication List Current Medications: Active Medications Atorvastatin Calcium (Lipitor -) 40 mg PO HS [facility] Last Admin: 11/07/17 22:17 Dose: 40 mg Diltiazem HCl (Cardizem Cd -) 360 mg PO DAILY [facility] Last Admin: 11/08/17 09:24 Dose: 360 mg Levofloxacin (Levaquin 500 Mg Premixed Ivpb -) 500 mg in 100 mls @ 100 mls/hr IVPB DAILY [facility] Last Admin: 11/08/17 09:24 Dose: 100 mls/hr Losartan Potassium (Cozaar -) 25 mg PO DAILY [facility] Last Admin: 11/08/17 09:22 Dose: 25 mg Metformin HCl (Glucophage -) 500 mg PO BIDAC [facility] Last Admin: 11/08/17 07:05 Dose: 500 mg Methimazole (Tapazole -) 5 mg PO MoTuWeThFr@1000 [facility] Last Admin: 11/08/17 09:22 Dose: 5 mg Pantoprazole Sodium (Protonix -) 40 mg PO DAILY [facility] Last Admin: 11/08/17 09:22 Dose: 40 mg Propranolol HCl (Inderal -) 40 mg PO BID [facility] Last Admin: 11/07/17 22:17 Dose: 40 mg Ticagrelor (Brilinta -) 90 mg PO BID [facility] Last Admin: 11/07/17 22:17 Dose: 90 mg Warfarin Sodium (Coumadin -) 3 mg PO DAILY@1800 [facility] Last Admin: 11/07/17 17:01 Dose: Not Given - Objective Vital Signs: Vital Signs Temperature 97.5 F L 11/08/17 08:25 Pulse Rate 98 H 11/08/17 08:25 Respiratory Rate 18 11/08/17 08:27 Blood Pressure 119/65 11/08/17 08:25 O2 Sat by Pulse Oximetry (%) 97 11/08/17 08:27 Constitutional: Yes: No Distress, Calm Neck: Yes: Supple Cardiovascular: Yes: Tachycardia, Pulse Irregular Respiratory: Yes: Regular, On Nasal O2 Gastrointestinal: Yes: Normal Bowel Sounds, Soft, Abdomen, Obese Edema: No Labs: CBC, BMP 11/08/17 05:45 11/08/17 05:45 INR, PTT INR 3.60 (0.82-1.09) H 11/07/17 22:00 - ....Imaging EKG: Report Reviewed (Tele: Rapid aflutter) Problem List - Problems (1) Acute on chronic diastolic (congestive) heart failure Code(s): I50.33 - ACUTE ON CHRONIC DIASTOLIC (CONGESTIVE) HEART FAILURE (2) Atrial fibrillation and flutter Code(s): I48.91 - UNSPECIFIED ATRIAL FIBRILLATION; I48.92 - UNSPECIFIED ATRIAL FLUTTER (3) COPD (chronic obstructive pulmonary disease) Code(s): J44.9 - CHRONIC OBSTRUCTIVE PULMONARY DISEASE, UNSPECIFIED Qualifiers: COPD type: unspecified COPD Qualified Code(s): J44.9 - Chronic obstructive pulmonary disease, unspecified (4) Diabetes mellitus Code(s): E11.9 - TYPE 2 DIABETES MELLITUS WITHOUT COMPLICATIONS Qualifiers: Diabetes mellitus type: type 2 Diabetes mellitus complication status: without complication Diabetes mellitus superintendent terminal insulin use: without shelter use Qualified Code(s): E11.9 - Type 2 diabetes mellitus without complications (5) HTN (hypertension) Code(s): I10 - ESSENTIAL (PRIMARY) HYPERTENSION Qualifiers: Hypertension type: essential hypertension Qualified Code(s): I10 - Essential (primary) hypertension (6) History of mitral valve replacement with bioprosthetic valve Code(s): Z95.3 - PRESENCE OF XENOGENIC HEART VALVE (7) History of percutaneous coronary intervention Code(s): Z98.890 - OTHER SPECIFIED POSTPROCEDURAL STATES (8) Hypercholesterolemia Code(s): E78.00 - PURE HYPERCHOLESTEROLEMIA, UNSPECIFIED (9) Hyperthyroidism Code(s): E05.90 - THYROTOXICOSIS, UNSP WITHOUT THYROTOXIC CRISIS OR STORM (10) Obstructive sleep apnea Code(s): G47.33 - OBSTRUCTIVE SLEEP APNEA (ADULT) (PEDIATRIC) (11) Chronic anticoagulation Code(s): Z79.01 - HALF-WAY (CURRENT) USE OF ANTICOAGULANTS Assessment/Plan 1. Atrial flutter with rapid ventricular response, previous failed cardioversion attempt 2. Acute on chronic diastolic failure referable to above rapid heart rate 3. Coronary artery disease. s/p PCI/stent, angina pectoris 4. Mitral valve disease s/p MVR with bioprosthesis 5. Hypertension/hypertensive cardiovascular disease 6. Hypercholesterolemia 7. Type 2 diabetes mellitus 8. COPD 9. Obstructive sleep apnea 10. Leukocytosis with possible URI vs. pneumonia (doubt) 11. Hyperthyrodism PLAN: 1. Continue Coumadin and keep INR 2-3 (currently supratherapeutic) 2. Continue rate control with Cardizem CD. Switch Inderal to Metoprolol for better rate-control 3. If initiated on Sotalol, she would need to continue with telemetry monitoring and obtain daily ECG to follow QTc. Further options of repeat synchronized cardioversion may be considered, ROGE-guidance not requires as patient confirms therapeutic INR over last 2 months 4. Continue Brilinta 90 bid (PCI < 1 year) 5. Continue Losartan 25 qd 6. Continue Lipitor 40 qhs 7. Sleep apnea management with cpap 8. Continue with Tapazole for hyperthyroidism and check TSH 9. Consider d/c empiric antibiotic coverage 10. Initiate diuresis with monitor diuretic response, renal fxn and electrolytes 11. Pt to f/u with Dr. Rashard Boyle upn d/c
[2017-11-08] MEDS ORDERED: METOPROLOL TARTRATE 5 MG/5 ML VIAL IVPUSH ONE (10:37)
[2017-11-08] MEDS: FUROSEMIDE 40 MG/4 ML INJECTABLE VIAL IVPUSH SCH (11:31)
[2017-11-08] MEDS: TICAGRELOR 90 MG TABLET PO SCH ×2 (11:31→22:12)
[2017-11-08] MEDS: METOPROLOL TARTRATE 25 MG TABLET (FP) PO SCH ×2 (11:32→22:12)
[2017-11-08] MEDS: PROPRANOLOL HCL 40 MG TABLET PO SCH (11:32)
--- NOTE | 2017-11-08 15:30 | PN ---
Progress Note, Physician History of Present Illness: Events noted. Pt still c/o shortness of breath, no productive cough. O2 sat 98% . Has been having palpitations, now with A flutter. Remains afebrile - Current Medication List Current Medications: Active Medications Atorvastatin Calcium (Lipitor -) 40 mg PO HS [facility] Last Admin: 11/07/17 22:17 Dose: 40 mg Diltiazem HCl (Cardizem Cd -) 360 mg PO DAILY [facility] Last Admin: 11/08/17 09:24 Dose: 360 mg Furosemide (Lasix Injection -) 40 mg IVPUSH DAILY [facility] Last Admin: 11/08/17 11:31 Dose: 40 mg Losartan Potassium (Cozaar -) 25 mg PO DAILY [facility] Last Admin: 11/08/17 09:22 Dose: 25 mg Metformin HCl (Glucophage -) 500 mg PO BIDAC [facility] Last Admin: 11/08/17 07:05 Dose: 500 mg Methimazole (Tapazole -) 5 mg PO MoTuWeThFr@1000 [facility] Last Admin: 11/08/17 09:22 Dose: 5 mg Metoprolol Tartrate (Lopressor -) 25 mg PO BID [facility] Last Admin: 11/08/17 11:32 Dose: Not Given Pantoprazole Sodium (Protonix -) 40 mg PO DAILY [facility] Last Admin: 11/08/17 09:22 Dose: 40 mg Ticagrelor (Brilinta -) 90 mg PO BID [facility] Last Admin: 11/08/17 11:31 Dose: 90 mg Warfarin Sodium (Coumadin -) 3 mg PO DAILY@1800 [facility] Last Admin: 11/07/17 17:01 Dose: Not Given - Objective Vital Signs: Vital Signs Temperature 97.5 F L 11/08/17 08:25 Pulse Rate 124 H 11/08/17 11:30 Respiratory Rate 18 11/08/17 08:27 Blood Pressure 117/68 11/08/17 11:30 O2 Sat by Pulse Oximetry (%) 97 11/08/17 08:27 Constitutional: Yes: No Distress, Calm Cardiovascular: Yes: Tachycardia, Pulse Irregular Respiratory: Yes: Diminished (slightly, diffuse) Gastrointestinal: Yes: Normal Bowel Sounds, Soft, Abdomen, Obese Neurological: Yes: Alert, Oriented Labs: CBC, BMP 11/08/17 05:45 11/08/17 05:45 INR, PTT INR 3.60 (0.82-1.09) H 11/07/17 22:00 Problem List - Problems (1) Atrial fibrillation and flutter Code(s): I48.91 - UNSPECIFIED ATRIAL FIBRILLATION; I48.92 - UNSPECIFIED ATRIAL FLUTTER (2) CAD (coronary artery disease) Code(s): I25.10 - ATHSCL HEART DISEASE OF [place] CORONARY ARTERY W/O ANG PCTRS Qualifiers: Coronary Disease-Associated Artery/Lesion type: [place] artery [place] vs. transplanted heart: [place] heart Associated angina: without angina Qualified Code(s): I25.10 - Atherosclerotic heart disease of [place] coronary artery without angina pectoris (3) CHF (congestive heart failure) Code(s): I50.9 - HEART FAILURE, UNSPECIFIED Qualifiers: Congestive heart failure type: combined Congestive heart failure chronicity : acute on chronic Qualified Code(s): I50.43 - Acute on chronic combined systolic (congestive) and diastolic (congestive) heart failure (4) COPD (chronic obstructive pulmonary disease) Code(s): J44.9 - CHRONIC OBSTRUCTIVE PULMONARY DISEASE, UNSPECIFIED Qualifiers: COPD type: unspecified COPD Qualified Code(s): J44.9 - Chronic obstructive pulmonary disease, unspecified (5) Diabetes mellitus Code(s): E11.9 - TYPE 2 DIABETES MELLITUS WITHOUT COMPLICATIONS Qualifiers: Diabetes mellitus type: type 2 Diabetes mellitus complication status: without complication Diabetes mellitus snf insulin use: without petroleum terminal plant operator use Qualified Code(s): E11.9 - Type 2 diabetes mellitus without complications (6) HTN (hypertension) Code(s): I10 - ESSENTIAL (PRIMARY) HYPERTENSION Qualifiers: Hypertension type: essential hypertension Qualified Code(s): I10 - Essential (primary) hypertension (7) History of mitral valve replacement with bioprosthetic valve Code(s): Z95.3 - PRESENCE OF XENOGENIC HEART VALVE (8) Hypercholesterolemia Code(s): E78.00 - PURE HYPERCHOLESTEROLEMIA, UNSPECIFIED (9) Obstructive sleep apnea Code(s): G47.33 - OBSTRUCTIVE SLEEP APNEA (ADULT) (PEDIATRIC) Assessment/Plan 71 y.o. female with CAD, HTN, DM, HLD, valve replacement, COPD, AFIB presenting with progressive shortness of breath, leukocytosis -- Pt in Aflutter, pulmonary congestion --case d/w cardiology - will d/c antibiotics for now -- cont monitor wbc trend, pt afebrile -- will receive further diuresis monitor vitals
[2017-11-08 18:56] LABS: INR 2.98 (0.82-1.09); PROTHROMBIN TIME (PATIENT) 33.7 SEC (9.98-11.88)
--- NOTE | 2017-11-08 20:20 | PN ---
Progress Note, Physician History of Present Illness: no complaints - Current Medication List Current Medications: Active Medications Atorvastatin Calcium (Lipitor -) 40 mg PO HS [facility] Last Admin: 11/07/17 22:17 Dose: 40 mg Diltiazem HCl (Cardizem Cd -) 360 mg PO DAILY [facility] Last Admin: 11/08/17 09:24 Dose: 360 mg Furosemide (Lasix Injection -) 40 mg IVPUSH DAILY [facility] Last Admin: 11/08/17 11:31 Dose: 40 mg Losartan Potassium (Cozaar -) 25 mg PO DAILY [facility] Last Admin: 11/08/17 09:22 Dose: 25 mg Metformin HCl (Glucophage -) 500 mg PO BIDAC [facility] Last Admin: 11/08/17 17:11 Dose: 500 mg Methimazole (Tapazole -) 5 mg PO MoTuWeThFr@1000 [facility] Last Admin: 11/08/17 09:22 Dose: 5 mg Metoprolol Tartrate (Lopressor -) 25 mg PO BID [facility] Last Admin: 11/08/17 11:32 Dose: Not Given Pantoprazole Sodium (Protonix -) 40 mg PO DAILY [facility] Last Admin: 11/08/17 09:22 Dose: 40 mg Ticagrelor (Brilinta -) 90 mg PO BID [facility] Last Admin: 11/08/17 11:31 Dose: 90 mg Warfarin Sodium (Coumadin -) 3 mg PO DAILY@1800 [facility] Last Admin: 11/07/17 17:01 Dose: Not Given - Objective Vital Signs: Vital Signs Temperature 98.8 F 11/08/17 17:00 Pulse Rate 129 H 11/08/17 17:00 Respiratory Rate 20 11/08/17 17:00 Blood Pressure 95/67 11/08/17 17:00 O2 Sat by Pulse Oximetry (%) 97 11/08/17 08:27 Constitutional: Yes: No Distress HENT: Yes: Atraumatic Neck: Yes: Supple Cardiovascular: Yes: Pulse Irregular Gastrointestinal: Yes: Normal Bowel Sounds Extremities: Yes: WNL Edema: No Peripheral Pulses WNL: Yes Neurological: Yes: Alert, Oriented Labs: CBC, BMP 11/08/17 05:45 11/08/17 05:45 INR, PTT INR 2.98 (0.82-1.09) H 11/08/17 17:40 Problem List - Problems (1) CHF (congestive heart failure) Assessment/Plan: on meds iv diuretics Code(s): I50.9 - HEART FAILURE, UNSPECIFIED Qualifiers: Congestive heart failure type: combined Congestive heart failure chronicity : acute on chronic Qualified Code(s): I50.43 - Acute on chronic combined systolic (congestive) and diastolic (congestive) heart failure (2) Pneumonia Assessment/Plan: on abx...emperic Code(s): J18.9 - PNEUMONIA, UNSPECIFIED ORGANISM Qualifiers: Pneumonia type: due to unspecified organism Laterality: right Lung location: lower lobe of lung Qualified Code(s): J18.1 - Lobar pneumonia, unspecified organism (3) Atrial fibrillation and flutter Assessment/Plan: meds getting adjusted by cardiology Code(s): I48.91 - UNSPECIFIED ATRIAL FIBRILLATION; I48.92 - UNSPECIFIED ATRIAL FLUTTER (4) CAD (coronary artery disease) Code(s): I25.10 - ATHSCL HEART DISEASE OF [place] CORONARY ARTERY W/O ANG PCTRS Qualifiers: Coronary Disease-Associated Artery/Lesion type: [place] artery [place] vs. transplanted heart: [place] heart Associated angina: without angina Qualified Code(s): I25.10 - Atherosclerotic heart disease of [place] coronary artery without angina pectoris (5) COPD (chronic obstructive pulmonary disease) Code(s): J44.9 - CHRONIC OBSTRUCTIVE PULMONARY DISEASE, UNSPECIFIED Qualifiers: COPD type: unspecified COPD Qualified Code(s): J44.9 - Chronic obstructive pulmonary disease, unspecified (6) Diabetes mellitus Code(s): E11.9 - TYPE 2 DIABETES MELLITUS WITHOUT COMPLICATIONS Qualifiers: Diabetes mellitus type: type 2 Diabetes mellitus complication status: without complication Diabetes mellitus termite treater helper insulin use: without termite treater helper use Qualified Code(s): E11.9 - Type 2 diabetes mellitus without complications (7) HTN (hypertension) Assessment/Plan: on meds stable Code(s): I10 - ESSENTIAL (PRIMARY) HYPERTENSION Qualifiers: Hypertension type: essential hypertension Qualified Code(s): I10 - Essential (primary) hypertension
[2017-11-08] MEDS: WARFARIN NA 3 MG TABLET PO SCH (22:12)
[2017-11-08] MEDS: ATORVASTATIN CA 40 MG TABLET (FP) PO SCH (22:12)
[2017-11-08 22:33] LABS: INR 2.78 (0.82-1.09); PROTHROMBIN TIME (PATIENT) 31.4 SEC (9.98-11.88)
[2017-11-09] MEDS: metFORMIN HCL 500 MG TABLET (FP) PO SCH ×2 (06:16→16:52)
[2017-11-09] MEDS ORDERED: PT OWN MED DRAWER 7, Y5N ONE ×2 (09:17→21:50)
[2017-11-09] MEDS: TICAGRELOR 90 MG TABLET PO SCH ×2 (09:23→21:57)
[2017-11-09] MEDS: FUROSEMIDE 40 MG/4 ML INJECTABLE VIAL IVPUSH SCH (09:25)
[2017-11-09] MEDS: LOSARTAN POTASSIUM 25 MG TABLET PO SCH (09:25)
[2017-11-09] MEDS: METHIMAZOLE 5 MG TABLET (FP) PO SCH (09:25)
[2017-11-09] MEDS: PANTOPRAZOLE 40 MG TABLET (FP) PO SCH (09:25)
[2017-11-09] MEDS: METOPROLOL TARTRATE 25 MG TABLET (FP) PO SCH (09:25)
[2017-11-09] MEDS: SOTALOL HCL 80 MG TABLET (FP) PO SCH ×3 (11:20→21:58)
--- NOTE | 2017-11-09 11:44 | PN ---
Progress Note, Physician Chief Complaint: Remains in atrial flutter with rapid ventricular response History of Present Illness: Patient was seen and examined. Awake and alert. Chart was reviewed Denies chest pain or SOB Seen in [facility] for synchronized cardioversion - Current Medication List Current Medications: Active Medications Atorvastatin Calcium (Lipitor -) 40 mg PO HS [facility] Last Admin: 11/08/17 22:12 Dose: 40 mg Diltiazem HCl (Cardizem Cd -) 360 mg PO DAILY [facility] Last Admin: 11/09/17 09:24 Dose: 360 mg Furosemide (Lasix Injection -) 40 mg IVPUSH DAILY [facility] Last Admin: 11/09/17 09:25 Dose: 40 mg Losartan Potassium (Cozaar -) 25 mg PO DAILY [facility] Last Admin: 11/09/17 09:25 Dose: 25 mg Metformin HCl (Glucophage -) 500 mg PO BIDAC [facility] Last Admin: 11/09/17 06:16 Dose: Not Given Methimazole (Tapazole -) 5 mg PO MoTuWeThFr@1000 [facility] Last Admin: 11/09/17 09:25 Dose: 5 mg Pantoprazole Sodium (Protonix -) 40 mg PO DAILY [facility] Last Admin: 11/09/17 09:25 Dose: 40 mg Sotalol HCl (Betapace -) 80 mg PO BID [facility] Ticagrelor (Brilinta -) 90 mg PO BID [facility] Last Admin: 11/09/17 09:23 Dose: 90 mg Warfarin Sodium (Coumadin -) 3 mg PO DAILY@1800 [facility] Last Admin: 11/08/17 22:12 Dose: 3 mg - Objective Vital Signs: Vital Signs Temperature 99.4 F 11/09/17 08:35 Pulse Rate 133 H 11/09/17 08:35 Respiratory Rate 18 11/09/17 08:35 Blood Pressure 112/69 11/09/17 08:35 O2 Sat by Pulse Oximetry (%) 96 11/08/17 23:00 Eyes: Yes: PERRL HENT: Yes: Atraumatic Neck: Yes: Supple Cardiovascular: Yes: Tachycardia, Pulse Irregular, Murmur (Soft SM), S1, S2 Respiratory: Yes: CTA Bilaterally Gastrointestinal: Yes: Normal Bowel Sounds, Soft. No: Tenderness Edema: No Additional Findings/Remarks: - Review of Systems Constitutional: denies: Chills, Fever Cardiovascular: denies: Chest Pain, (+) Palpitations, denies: Shortness of Breath Respiratory: reports: Cough, SOB, SOB on Exertion. denies: Hemoptysis, Orthopnea, PND Gastrointestinal: denies: Abdominal Pain, Constipation, Diarrhea, Melena, Nausea , Rectal Bleeding, Vomiting Genitourinary: denies: Dysuria, Hematuria Musculoskeletal: denies: Joint Pain Neurological: denies: Dizziness, Headache, Seizure, Syncope, Weakness Labs: CBC, BMP 11/08/17 05:45 11/08/17 05:45 INR, PTT INR 2.78 (0.82-1.09) H 11/08/17 22:00 Problem List - Problems (1) CAD (coronary artery disease) Code(s): I25.10 - ATHSCL HEART DISEASE OF [place] CORONARY ARTERY W/O ANG PCTRS Qualifiers: Coronary Disease-Associated Artery/Lesion type: [place] artery [place] vs. transplanted heart: [place] heart Associated angina: without angina Qualified Code(s): I25.10 - Atherosclerotic heart disease of [place] coronary artery without angina pectoris (2) History of percutaneous coronary intervention Code(s): Z98.890 - OTHER SPECIFIED POSTPROCEDURAL STATES (3) HTN (hypertension) Code(s): I10 - ESSENTIAL (PRIMARY) HYPERTENSION Qualifiers: Hypertension type: essential hypertension Qualified Code(s): I10 - Essential (primary) hypertension (4) Hypercholesterolemia Code(s): E78.00 - PURE HYPERCHOLESTEROLEMIA, UNSPECIFIED (5) Diabetes mellitus Code(s): E11.9 - TYPE 2 DIABETES MELLITUS WITHOUT COMPLICATIONS Qualifiers: Diabetes mellitus type: type 2 Diabetes mellitus complication status: without complication Diabetes mellitus intermediate card tender insulin use: without intermediate card tender use Qualified Code(s): E11.9 - Type 2 diabetes mellitus without complications (6) Obstructive sleep apnea Code(s): G47.33 - OBSTRUCTIVE SLEEP APNEA (ADULT) (PEDIATRIC) (7) COPD (chronic obstructive pulmonary disease) Code(s): J44.9 - CHRONIC OBSTRUCTIVE PULMONARY DISEASE, UNSPECIFIED Qualifiers: COPD type: unspecified COPD Qualified Code(s): J44.9 - Chronic obstructive pulmonary disease, unspecified (8) Hyperthyroidism Code(s): E05.90 - THYROTOXICOSIS, UNSP WITHOUT THYROTOXIC CRISIS OR STORM (9) History of mitral valve replacement with bioprosthetic valve Code(s): Z95.3 - PRESENCE OF XENOGENIC HEART VALVE (10) Atrial fibrillation and flutter Code(s): I48.91 - UNSPECIFIED ATRIAL FIBRILLATION; I48.92 - UNSPECIFIED ATRIAL FLUTTER (11) CHF (congestive heart failure) Code(s): I50.9 - HEART FAILURE, UNSPECIFIED Qualifiers: Congestive heart failure type: combined Congestive heart failure chronicity : acute on chronic Qualified Code(s): I50.43 - Acute on chronic combined systolic (congestive) and diastolic (congestive) heart failure (12) Pneumonia Code(s): J18.9 - PNEUMONIA, UNSPECIFIED ORGANISM Qualifiers: Pneumonia type: due to unspecified organism Laterality: right Lung location: lower lobe of lung Qualified Code(s): J18.1 - Lobar pneumonia, unspecified organism Assessment/Plan 1. Atrial flutter with rapid ventricular response, previous failed cardioversion attempt - await for repeat attempt 2. Clinical presentation suggests class 2 NYHA classification LV failure due to above rapid heart rate 3. Coronary artery disease. s/p PCI/stent, angina pectoris 4. Mitral valve disease s/p MVR with bioprosthesis 5. Hypertension/hypertensive cardiovascular disease 6. Hypercholesterolemia 7. Type 2 diabetes mellitus 8. COPD 9. Obstructive sleep apnea 10. Leukocytosis with possible URI vs. pneumonia 11. Hyperthyrodism PLAN: 1. Continue Coumadin and keep INR 2-3 2. Continue rate control with Cardizem CD. Started on Sotalol 80 mg BID. Telemetry monitoring and obtain daily ECG to follow QTc. Proceed with synchronized cardioversion. Consider AF ablation when she returns to [place] and if it is deemed necessary 3. Continue ASA and Brilinta (if PCI is over 1 year, would change it to maintenance dose of 60 mg BID) 4. Continue Losartan 5. Continue Lipitor 6. Sleep apnea management would be important in also maintaining sinus rhythm 7. Continue with Tapazole for hyperthyroidism and check TFT 8. Antibiotic coverage Once discharged and when she returns to [place], she should follow up with her founder ceo & president: Dr. Rashard Boyle Further plans are to follow Ramirez Martinez MD
[2017-11-09 14:24] LABS: INR 1.99 (0.82-1.09); PROTHROMBIN TIME (PATIENT) 22.5 SEC (9.98-11.88)
--- NOTE | 2017-11-09 15:06 | EKG ---
Test Reason : Blood Pressure : / mmHG Vent. Rate : 097 BPM Atrial Rate : 097 BPM P-R Int : 254 ms QRS Dur : 084 ms QT Int : 530 ms P-R-T Axes : 058 028 067 degrees QTc Int : 673 ms SINUS RHYTHM WITH 1ST DEGREE A-V BLOCK LEFT BUNDLE BRANCH BLOCK ABNORMAL ECG Confirmed by TONIA WHITE MD ([id number]) on 11/09/2017 3:05:45 PM Referred By: Confirmed By:TONIA WHITE MD
--- NOTE | 2017-11-09 16:16 | PN ---
Progress Note, Physician History of Present Illness: Pt is s/p cardioversion, resting now. Tmax 99.8F currently afebrile. - Current Medication List Current Medications: Active Medications Atorvastatin Calcium (Lipitor -) 40 mg PO HS [facility] Last Admin: 11/08/17 22:12 Dose: 40 mg Diltiazem HCl (Cardizem Cd -) 360 mg PO DAILY [facility] Last Admin: 11/09/17 09:24 Dose: 360 mg Furosemide (Lasix Injection -) 40 mg IVPUSH DAILY [facility] Last Admin: 11/09/17 09:25 Dose: 40 mg Doxycycline Hyclate 100 mg/ (Dextrose) 100 mls @ 100 mls/hr IVPB BID [facility] Losartan Potassium (Cozaar -) 25 mg PO DAILY [facility] Last Admin: 11/09/17 09:25 Dose: 25 mg Metformin HCl (Glucophage -) 500 mg PO BIDAC [facility] Last Admin: 11/09/17 06:16 Dose: Not Given Methimazole (Tapazole -) 5 mg PO MoTuWeThFr@1000 [facility] Last Admin: 11/09/17 09:25 Dose: 5 mg Pantoprazole Sodium (Protonix -) 40 mg PO DAILY [facility] Last Admin: 11/09/17 09:25 Dose: 40 mg Sotalol HCl (Betapace -) 80 mg PO BID [facility] Last Admin: 11/09/17 11:20 Dose: Not Given Ticagrelor (Brilinta -) 90 mg PO BID [facility] Last Admin: 11/09/17 09:23 Dose: 90 mg Warfarin Sodium (Coumadin -) 3 mg PO DAILY@1800 [facility] Last Admin: 11/08/17 22:12 Dose: 3 mg - Objective Vital Signs: Vital Signs Temperature 98.4 F 11/09/17 14:57 Pulse Rate 99 H 11/09/17 14:57 Respiratory Rate 18 11/09/17 14:57 Blood Pressure 97/55 11/09/17 14:57 O2 Sat by Pulse Oximetry (%) 99 11/09/17 12:19 Constitutional: Yes: No Distress Cardiovascular: Yes: Tachycardia Respiratory: Yes: Regular Gastrointestinal: Yes: Normal Bowel Sounds, Soft Labs: CBC, BMP 11/08/17 05:45 11/08/17 05:45 INR, PTT INR 1.99 (0.82-1.09) H 11/09/17 13:00 Microbiology 11/06/17 12:00 Blood - Peripheral Venous Blood Culture - Preliminary NO GROWTH OBTAINED AFTER 72 HOURS, INCUBATION TO CONTINUE FOR 2 DAYS. 11/06/17 12:00 Blood - Peripheral Venous Blood Culture - Preliminary NO GROWTH OBTAINED AFTER 72 HOURS, INCUBATION TO CONTINUE FOR 2 DAYS. 11/06/17 12:00 Urine - Urine Clean Catch Urine Culture - Final NO GROWTH OBTAINED 11/06/17 12:00 Nasopharyngeal Swab Influenza Types A,B Antigen (KAMILA) - Final 11/06/17 12:00 Nasopharyngeal Swab - Final Problem List - Problems (1) Atrial fibrillation and flutter Code(s): I48.91 - UNSPECIFIED ATRIAL FIBRILLATION; I48.92 - UNSPECIFIED ATRIAL FLUTTER (2) CAD (coronary artery disease) Code(s): I25.10 - ATHSCL HEART DISEASE OF [place] CORONARY ARTERY W/O ANG PCTRS Qualifiers: Coronary Disease-Associated Artery/Lesion type: [place] artery [place] vs. transplanted heart: [place] heart Associated angina: without angina Qualified Code(s): I25.10 - Atherosclerotic heart disease of [place] coronary artery without angina pectoris (3) CHF (congestive heart failure) Code(s): I50.9 - HEART FAILURE, UNSPECIFIED Qualifiers: Congestive heart failure type: combined Congestive heart failure chronicity : acute on chronic Qualified Code(s): I50.43 - Acute on chronic combined systolic (congestive) and diastolic (congestive) heart failure (4) COPD (chronic obstructive pulmonary disease) Code(s): J44.9 - CHRONIC OBSTRUCTIVE PULMONARY DISEASE, UNSPECIFIED Qualifiers: COPD type: unspecified COPD Qualified Code(s): J44.9 - Chronic obstructive pulmonary disease, unspecified (5) Diabetes mellitus Code(s): E11.9 - TYPE 2 DIABETES MELLITUS WITHOUT COMPLICATIONS Qualifiers: Diabetes mellitus type: type 2 Diabetes mellitus complication status: without complication Diabetes mellitus intermediate insulin use: without intermediate use Qualified Code(s): E11.9 - Type 2 diabetes mellitus without complications (6) HTN (hypertension) Code(s): I10 - ESSENTIAL (PRIMARY) HYPERTENSION Qualifiers: Hypertension type: essential hypertension Qualified Code(s): I10 - Essential (primary) hypertension (7) History of mitral valve replacement with bioprosthetic valve Code(s): Z95.3 - PRESENCE OF XENOGENIC HEART VALVE (8) Hypercholesterolemia Code(s): E78.00 - PURE HYPERCHOLESTEROLEMIA, UNSPECIFIED (9) Obstructive sleep apnea Code(s): G47.33 - OBSTRUCTIVE SLEEP APNEA (ADULT) (PEDIATRIC) Assessment/Plan 71 y.o. female with CAD, HTN, DM, HLD, valve replacement, COPD, AFIB presenting with progressive shortness of breath, leukocytosis Blood/Urine cultures/CXR negative - start Doxycycline empirically, monitor wbc, if remains elevated will start broad spectrum antibiotics - continue monitor
[2017-11-09] MEDS: WARFARIN NA 3 MG TABLET PO SCH (17:27)
[2017-11-09] MEDS: DOXYCYCLINE INJECTION 100 MG in DEXTROSE 5%-WATER - 100 ML IVPB SCH ×2 (18:36→21:57)
[2017-11-09] MEDS ORDERED: ACETAMINOPHEN 325 MG TABLET (FP) PO PRN (20:18)
--- NOTE | 2017-11-09 20:20 | PN ---
Progress Note, Physician History of Present Illness: s/p cardioversion - Current Medication List Current Medications: Active Medications Acetaminophen (Tylenol -) 650 mg PO Q6H PRN PRN Reason: FEVER OR PAIN Atorvastatin Calcium (Lipitor -) 40 mg PO HS [facility] Last Admin: 11/08/17 22:12 Dose: 40 mg Diltiazem HCl (Cardizem Cd -) 360 mg PO DAILY [facility] Last Admin: 11/09/17 09:24 Dose: 360 mg Furosemide (Lasix Injection -) 40 mg IVPUSH DAILY [facility] Last Admin: 11/09/17 09:25 Dose: 40 mg Doxycycline Hyclate 100 mg/ (Dextrose) 100 mls @ 50 mls/hr IVPB BID [facility] Last Admin: 11/09/17 18:36 Dose: 50 mls/hr Losartan Potassium (Cozaar -) 25 mg PO DAILY [facility] Last Admin: 11/09/17 09:25 Dose: 25 mg Metformin HCl (Glucophage -) 500 mg PO BIDAC [facility] Last Admin: 11/09/17 16:52 Dose: 500 mg Methimazole (Tapazole -) 5 mg PO MoTuWeThFr@1000 [facility] Last Admin: 11/09/17 09:25 Dose: 5 mg Pantoprazole Sodium (Protonix -) 40 mg PO DAILY [facility] Last Admin: 11/09/17 09:25 Dose: 40 mg Sotalol HCl (Betapace -) 80 mg PO BID [facility] Last Admin: 11/09/17 17:27 Dose: 80 mg Ticagrelor (Brilinta -) 90 mg PO BID [facility] Last Admin: 11/09/17 09:23 Dose: 90 mg Warfarin Sodium (Coumadin -) 3 mg PO DAILY@1800 [facility] Last Admin: 11/09/17 17:27 Dose: 3 mg - Objective Vital Signs: Vital Signs Temperature 97.5 F L 11/09/17 17:00 Pulse Rate 96 H 11/09/17 17:00 Respiratory Rate 20 11/09/17 17:00 Blood Pressure 101/69 11/09/17 17:00 O2 Sat by Pulse Oximetry (%) 99 11/09/17 12:19 Constitutional: Yes: No Distress HENT: Yes: Atraumatic Cardiovascular: Yes: Tachycardia Respiratory: Yes: CTA Bilaterally Gastrointestinal: Yes: Normal Bowel Sounds Extremities: Yes: WNL Neurological: Yes: Alert, Oriented Labs: CBC, BMP 11/08/17 05:45 11/08/17 05:45 INR, PTT INR 1.99 (0.82-1.09) H 11/09/17 13:00 Problem List - Problems (1) CHF (congestive heart failure) Assessment/Plan: on meds iv diuretics Code(s): I50.9 - HEART FAILURE, UNSPECIFIED Qualifiers: Congestive heart failure type: combined Congestive heart failure chronicity : acute on chronic Qualified Code(s): I50.43 - Acute on chronic combined systolic (congestive) and diastolic (congestive) heart failure (2) Pneumonia Assessment/Plan: on abx...emperic cxr congestion Code(s): J18.9 - PNEUMONIA, UNSPECIFIED ORGANISM Qualifiers: Pneumonia type: due to unspecified organism Laterality: right Lung location: lower lobe of lung Qualified Code(s): J18.1 - Lobar pneumonia, unspecified organism (3) Atrial fibrillation and flutter Assessment/Plan: meds getting adjusted by cardiology s/p cardioversion Code(s): I48.91 - UNSPECIFIED ATRIAL FIBRILLATION; I48.92 - UNSPECIFIED ATRIAL FLUTTER (4) Diabetes mellitus Assessment/Plan: on meds stable Code(s): E11.9 - TYPE 2 DIABETES MELLITUS WITHOUT COMPLICATIONS Qualifiers: Diabetes mellitus type: type 2 Diabetes mellitus complication status: without complication Diabetes mellitus usp insulin use: without usp use Qualified Code(s): E11.9 - Type 2 diabetes mellitus without complications (5) HTN (hypertension) Assessment/Plan: on meds stable Code(s): I10 - ESSENTIAL (PRIMARY) HYPERTENSION Qualifiers: Hypertension type: essential hypertension Qualified Code(s): I10 - Essential (primary) hypertension
[2017-11-09] MEDS: ATORVASTATIN CA 40 MG TABLET (FP) PO SCH (21:57)
[2017-11-09 22:25] LABS: INR 1.88 (0.82-1.09); PROTHROMBIN TIME (PATIENT) 21.3 SEC (9.98-11.88)
[2017-11-10] MEDS: metFORMIN HCL 500 MG TABLET (FP) PO SCH ×2 (06:57→17:32)
[2017-11-10 07:55] LABS: BASOPHIL 0.7 % (0-2.0); EOSINOPHIL 2.6 % (0-4.5); MCHC 30.8 g/dl (32.0-36.0); MEAN CELL VOLUME 63.9 fl (80-96); MEAN PLT VOLUME 8.3 fl (7.5-11.1); NEUTROPHILS 73.8 % (42.8-82.8); PLATELET COUNT 641 K/MM3 (134-434); RDW 20.5 % (11.6-15.6); WHITE BLOOD COUNT 10.8 K/mm3 (4.0-10.0)
[2017-11-10 08:06] LABS: MCH 19.7 pg (25.7-33.7)
[2017-11-10 08:22] LABS: INR 1.73 (0.82-1.09); PROTHROMBIN TIME (PATIENT) 19.5 SEC (9.98-11.88)
[2017-11-10 08:25] LABS: ACTIVATED PTT 33.2 SECONDS (26.9-34.4)
[2017-11-10] MEDS ORDERED: PT OWN MED DRAWER 7, Y5N ONE ×3 (09:01→21:35)
[2017-11-10] MEDS: METHIMAZOLE 5 MG TABLET (FP) PO SCH (10:14)
[2017-11-10] MEDS: DOXYCYCLINE INJECTION 100 MG in DEXTROSE 5%-WATER - 100 ML IVPB SCH ×2 (10:14→21:39)
[2017-11-10] MEDS: PANTOPRAZOLE 40 MG TABLET (FP) PO SCH (10:14)
[2017-11-10] MEDS: SOTALOL HCL 80 MG TABLET (FP) PO SCH (10:14)
[2017-11-10] MEDS: FUROSEMIDE 40 MG/4 ML INJECTABLE VIAL IVPUSH SCH (10:14)
[2017-11-10] MEDS: LOSARTAN POTASSIUM 25 MG TABLET PO SCH (10:14)
[2017-11-10] MEDS: TICAGRELOR 90 MG TABLET PO SCH ×2 (10:15→21:39)
[2017-11-10 11:24] LABS: ANISOCYTOSIS 3+; HYPOCHROMIA 1+; MACROCYTOSIS 0; MICROCYTOSIS 3+; OVALOCYTE 1+; PLATELET ESTIMATE INCREASED; POIKILOCYTOSIS 1+; POLYCHROMASIA 2+
--- NOTE | 2017-11-10 12:50 | PN ---
Progress Note, Physician History of Present Illness: Remains in NSR with frequent PVC post DCCV. QTc prolonged on sotalol. - Current Medication List Current Medications: Active Medications Acetaminophen (Tylenol -) 650 mg PO Q6H PRN PRN Reason: FEVER OR PAIN Last Admin: 11/09/17 20:35 Dose: 650 mg Atorvastatin Calcium (Lipitor -) 40 mg PO HS [facility] Last Admin: 11/09/17 21:57 Dose: 40 mg Diltiazem HCl (Cardizem Cd -) 360 mg PO DAILY [facility] Last Admin: 11/10/17 10:13 Dose: 360 mg Furosemide (Lasix Injection -) 40 mg IVPUSH DAILY [facility] Last Admin: 11/10/17 10:14 Dose: 40 mg Doxycycline Hyclate 100 mg/ (Dextrose) 100 mls @ 50 mls/hr IVPB BID [facility] Last Admin: 11/10/17 10:14 Dose: 50 mls/hr Losartan Potassium (Cozaar -) 25 mg PO DAILY [facility] Last Admin: 11/10/17 10:14 Dose: 25 mg Metformin HCl (Glucophage -) 500 mg PO BIDAC [facility] Last Admin: 11/10/17 06:57 Dose: 500 mg Methimazole (Tapazole -) 5 mg PO MoTuWeThFr@1000 [facility] Last Admin: 11/10/17 10:14 Dose: 5 mg Pantoprazole Sodium (Protonix -) 40 mg PO DAILY [facility] Last Admin: 11/10/17 10:14 Dose: 40 mg Sotalol HCl (Betapace -) 80 mg PO BID [facility] Last Admin: 11/10/17 10:14 Dose: 80 mg Ticagrelor (Brilinta -) 90 mg PO BID [facility] Last Admin: 11/10/17 10:15 Dose: 90 mg Warfarin Sodium (Coumadin -) 3 mg PO DAILY@1800 [facility] Last Admin: 11/09/17 17:27 Dose: 3 mg - Objective Vital Signs: Vital Signs Temperature 97.5 F L 11/10/17 05:00 Pulse Rate 74 11/10/17 05:00 Respiratory Rate 20 11/10/17 05:00 Blood Pressure 111/64 11/10/17 05:00 O2 Sat by Pulse Oximetry (%) 99 11/09/17 21:00 Constitutional: Yes: No Distress, Calm Neck: Yes: Supple Cardiovascular: Yes: Regular Rate and Rhythm Respiratory: Yes: Regular, Diminished Gastrointestinal: Yes: Normal Bowel Sounds, Soft, Abdomen, Obese Edema: No Labs: CBC, BMP 11/10/17 05:37 11/08/17 05:45 INR, PTT INR 1.73 (0.82-1.09) H 11/10/17 06:20 - ....Imaging EKG: Report Reviewed (NSR @ 80 1st deg AVB QTC 535 msec) Problem List - Problems (1) Acute on chronic diastolic (congestive) heart failure Code(s): I50.33 - ACUTE ON CHRONIC DIASTOLIC (CONGESTIVE) HEART FAILURE (2) Atrial fibrillation and flutter Code(s): I48.91 - UNSPECIFIED ATRIAL FIBRILLATION; I48.92 - UNSPECIFIED ATRIAL FLUTTER (3) COPD (chronic obstructive pulmonary disease) Code(s): J44.9 - CHRONIC OBSTRUCTIVE PULMONARY DISEASE, UNSPECIFIED Qualifiers: COPD type: unspecified COPD Qualified Code(s): J44.9 - Chronic obstructive pulmonary disease, unspecified (4) Diabetes mellitus Code(s): E11.9 - TYPE 2 DIABETES MELLITUS WITHOUT COMPLICATIONS Qualifiers: Diabetes mellitus type: type 2 Diabetes mellitus complication status: without complication Diabetes mellitus longterm insulin use: without longterm use Qualified Code(s): E11.9 - Type 2 diabetes mellitus without complications (5) HTN (hypertension) Code(s): I10 - ESSENTIAL (PRIMARY) HYPERTENSION Qualifiers: Hypertension type: essential hypertension Qualified Code(s): I10 - Essential (primary) hypertension (6) History of mitral valve replacement with bioprosthetic valve Code(s): Z95.3 - PRESENCE OF XENOGENIC HEART VALVE (7) History of percutaneous coronary intervention Code(s): Z98.890 - OTHER SPECIFIED POSTPROCEDURAL STATES (8) Hypercholesterolemia Code(s): E78.00 - PURE HYPERCHOLESTEROLEMIA, UNSPECIFIED (9) Hyperthyroidism Code(s): E05.90 - THYROTOXICOSIS, UNSP WITHOUT THYROTOXIC CRISIS OR STORM (10) Obstructive sleep apnea Code(s): G47.33 - OBSTRUCTIVE SLEEP APNEA (ADULT) (PEDIATRIC) (11) Chronic anticoagulation Code(s): Z79.01 - OBSTETRICAL NURSE (CURRENT) USE OF ANTICOAGULANTS Assessment/Plan 1. Paroxysmal Atrial flutter with rapid ventricular response, back in NSR with PVC post DCCV with subtherapeutic INR 2. Clinical presentation suggests class 2 NYHA classification LV failure due to above rapid heart rate 3. Coronary artery disease. s/p PCI/stent, angina pectoris 4. Mitral valve disease s/p MVR with bioprosthesis 5. Hypertension/hypertensive cardiovascular disease 6. Hypercholesterolemia 7. Type 2 diabetes mellitus 8. COPD 9. Obstructive sleep apnea 10. Leukocytosis with possible URI vs. pneumonia 11. Hyperthyrodism 12. Prolonged QTc 535 msec on Sotalol since dced PLAN: 1. Uptitrate Coumadin dose (usuallly 6 mg daily at home) to keep INR 2-3 2. Continue rate control with Cardizem CD 360 qd. Change Sotalol 80 mg BID to Lopressor 50 bid given prolonged QTc. Telemetry monitoring and obtain daily ECG to follow QTc. Consider AF ablation when she returns to [place] and if it is deemed necessary 3. Continue Brilinta 90 bid (if PCI is over 1 year, would change it to maintenance dose of 60 mg BID) 4. Continue Losartan 25 qd 5. Continue Lipitor 40 qhs, resume oral Lasix 20 qd 6. Sleep apnea management would be important in also maintaining sinus rhythm 7. Continue with Tapazole for hyperthyroidism and check TFT 8. Empiric antibiotic coverage with doxycycline Once discharged and when she returns to [facility], she should follow up with her house worker general: Dr. Rashard Boyle
--- NOTE | 2017-11-10 14:53 | PN ---
Progress Note, Physician History of Present Illness: Pt feels the same. No fever, cough with deep inhalation but no acute distress. No other complaints. - Current Medication List Current Medications: Active Medications Acetaminophen (Tylenol -) 650 mg PO Q6H PRN PRN Reason: FEVER OR PAIN Last Admin: 11/09/17 20:35 Dose: 650 mg Atorvastatin Calcium (Lipitor -) 40 mg PO HS [facility] Last Admin: 11/09/17 21:57 Dose: 40 mg Diltiazem HCl (Cardizem Cd -) 360 mg PO DAILY [facility] Last Admin: 11/10/17 10:13 Dose: 360 mg Furosemide (Lasix -) 20 mg PO DAILY [facility] Doxycycline Hyclate 100 mg/ (Dextrose) 100 mls @ 50 mls/hr IVPB BID [facility] Last Admin: 11/10/17 10:14 Dose: 50 mls/hr Losartan Potassium (Cozaar -) 25 mg PO DAILY [facility] Last Admin: 11/10/17 10:14 Dose: 25 mg Metformin HCl (Glucophage -) 500 mg PO BIDAC [facility] Last Admin: 11/10/17 06:57 Dose: 500 mg Methimazole (Tapazole -) 5 mg PO MoTuWeThFr@1000 [facility] Last Admin: 11/10/17 10:14 Dose: 5 mg Metoprolol Tartrate (Lopressor -) 50 mg PO BID [facility] Pantoprazole Sodium (Protonix -) 40 mg PO DAILY [facility] Last Admin: 11/10/17 10:14 Dose: 40 mg Ticagrelor (Brilinta -) 90 mg PO BID [facility] Last Admin: 11/10/17 10:15 Dose: 90 mg Warfarin Sodium (Coumadin -) 6 mg PO ONCE@1800 ONE Stop: 11/10/17 18:01 - Objective Vital Signs: Vital Signs Temperature 97.5 F L 11/10/17 05:00 Pulse Rate 74 11/10/17 05:00 Respiratory Rate 20 11/10/17 05:00 Blood Pressure 111/64 11/10/17 05:00 O2 Sat by Pulse Oximetry (%) 99 11/09/17 21:00 Constitutional: Yes: No Distress, Calm Neck: Yes: Supple Cardiovascular: Yes: Regular Rate and Rhythm Respiratory: Yes: CTA Bilaterally Gastrointestinal: Yes: Normal Bowel Sounds, Soft Genitourinary: Yes: WNL Neurological: Yes: Alert, Oriented Labs: CBC, BMP 11/10/17 05:37 11/08/17 05:45 INR, PTT INR 1.73 (0.82-1.09) H 11/10/17 06:20 Microbiology 11/06/17 12:00 Blood - Peripheral Venous Blood Culture - Preliminary NO GROWTH OBTAINED AFTER 96 HOURS, INCUBATION TO CONTINUE FOR 1 DAYS. 11/06/17 12:00 Blood - Peripheral Venous Blood Culture - Preliminary NO GROWTH OBTAINED AFTER 96 HOURS, INCUBATION TO CONTINUE FOR 1 DAYS. 11/06/17 12:00 Urine - Urine Clean Catch Urine Culture - Final NO GROWTH OBTAINED 11/06/17 12:00 Nasopharyngeal Swab Influenza Types A,B Antigen (KAMILA) - Final 11/06/17 12:00 Nasopharyngeal Swab - Final Problem List - Problems (1) Atrial fibrillation and flutter Code(s): I48.91 - UNSPECIFIED ATRIAL FIBRILLATION; I48.92 - UNSPECIFIED ATRIAL FLUTTER (2) CAD (coronary artery disease) Code(s): I25.10 - ATHSCL HEART DISEASE OF [place] CORONARY ARTERY W/O ANG PCTRS Qualifiers: Coronary Disease-Associated Artery/Lesion type: [place] artery [place] vs. transplanted heart: [place] heart Associated angina: without angina Qualified Code(s): I25.10 - Atherosclerotic heart disease of [place] coronary artery without angina pectoris (3) CHF (congestive heart failure) Code(s): I50.9 - HEART FAILURE, UNSPECIFIED Qualifiers: Congestive heart failure type: combined Congestive heart failure chronicity : acute on chronic Qualified Code(s): I50.43 - Acute on chronic combined systolic (congestive) and diastolic (congestive) heart failure (4) COPD (chronic obstructive pulmonary disease) Code(s): J44.9 - CHRONIC OBSTRUCTIVE PULMONARY DISEASE, UNSPECIFIED Qualifiers: COPD type: unspecified COPD Qualified Code(s): J44.9 - Chronic obstructive pulmonary disease, unspecified (5) Diabetes mellitus Code(s): E11.9 - TYPE 2 DIABETES MELLITUS WITHOUT COMPLICATIONS Qualifiers: Diabetes mellitus type: type 2 Diabetes mellitus complication status: without complication Diabetes mellitus terminologist insulin use: without intermediate use Qualified Code(s): E11.9 - Type 2 diabetes mellitus without complications (6) HTN (hypertension) Code(s): I10 - ESSENTIAL (PRIMARY) HYPERTENSION Qualifiers: Hypertension type: essential hypertension Qualified Code(s): I10 - Essential (primary) hypertension (7) History of mitral valve replacement with bioprosthetic valve Code(s): Z95.3 - PRESENCE OF XENOGENIC HEART VALVE (8) Hypercholesterolemia Code(s): E78.00 - PURE HYPERCHOLESTEROLEMIA, UNSPECIFIED (9) Obstructive sleep apnea Code(s): G47.33 - OBSTRUCTIVE SLEEP APNEA (ADULT) (PEDIATRIC) Assessment/Plan 71 y.o. female with CAD, HTN, DM, HLD, valve replacement, COPD, AFIB presenting with progressive shortness of breath, leukocytosis COPD exacerbation/possible PNA s/p Cardioversion Leukocytosis resolved - on doxycycline - may change to po if remains stable, wbc remains normal - continue monitor
[2017-11-10] MEDS: METOPROLOL TARTRATE 50 MG TABLET (FP) PO SCH ×2 (15:17→21:39)
--- NOTE | 2017-11-10 17:08 | PN ---
Progress Note, Physician - Current Medication List Current Medications: Active Medications Acetaminophen (Tylenol -) 650 mg PO Q6H PRN PRN Reason: FEVER OR PAIN Last Admin: 11/09/17 20:35 Dose: 650 mg Atorvastatin Calcium (Lipitor -) 40 mg PO HS [facility] Last Admin: 11/09/17 21:57 Dose: 40 mg Diltiazem HCl (Cardizem Cd -) 360 mg PO DAILY [facility] Last Admin: 11/10/17 10:13 Dose: 360 mg Furosemide (Lasix -) 20 mg PO DAILY [facility] Doxycycline Hyclate 100 mg/ (Dextrose) 100 mls @ 50 mls/hr IVPB BID [facility] Last Admin: 11/10/17 10:14 Dose: 50 mls/hr Losartan Potassium (Cozaar -) 25 mg PO DAILY [facility] Last Admin: 11/10/17 10:14 Dose: 25 mg Metformin HCl (Glucophage -) 500 mg PO BIDAC [facility] Last Admin: 11/10/17 06:57 Dose: 500 mg Methimazole (Tapazole -) 5 mg PO MoTuWeThFr@1000 [facility] Last Admin: 11/10/17 10:14 Dose: 5 mg Metoprolol Tartrate (Lopressor -) 50 mg PO BID [facility] Last Admin: 11/10/17 15:17 Dose: 50 mg Pantoprazole Sodium (Protonix -) 40 mg PO DAILY [facility] Last Admin: 11/10/17 10:14 Dose: 40 mg Ticagrelor (Brilinta -) 90 mg PO BID [facility] Last Admin: 11/10/17 10:15 Dose: 90 mg Warfarin Sodium (Coumadin -) 6 mg PO ONCE@1800 ONE Stop: 11/10/17 18:01 - Objective Vital Signs: Vital Signs Temperature 98.1 F 11/10/17 14:00 Pulse Rate 76 11/10/17 14:00 Respiratory Rate 20 11/10/17 14:00 Blood Pressure 113/64 11/10/17 14:00 O2 Sat by Pulse Oximetry (%) 95 11/10/17 10:00 HENT: Yes: Atraumatic Neck: Yes: Supple Cardiovascular: Yes: Regular Rate and Rhythm Respiratory: Yes: CTA Bilaterally Gastrointestinal: Yes: Normal Bowel Sounds Extremities: Yes: WNL Neurological: Yes: Alert, Oriented Labs: CBC, BMP 11/10/17 05:37 11/08/17 05:45 INR, PTT INR 1.73 (0.82-1.09) H 11/10/17 06:20 Problem List - Problems (1) CHF (congestive heart failure) Assessment/Plan: on meds iv diuretics Code(s): I50.9 - HEART FAILURE, UNSPECIFIED Qualifiers: Congestive heart failure type: combined Congestive heart failure chronicity : acute on chronic Qualified Code(s): I50.43 - Acute on chronic combined systolic (congestive) and diastolic (congestive) heart failure (2) Pneumonia Assessment/Plan: on abx...emperic cxr congestion Code(s): J18.9 - PNEUMONIA, UNSPECIFIED ORGANISM Qualifiers: Pneumonia type: due to unspecified organism Laterality: right Lung location: lower lobe of lung Qualified Code(s): J18.1 - Lobar pneumonia, unspecified organism (3) Atrial fibrillation and flutter Assessment/Plan: meds getting adjusted by cardiology s/p cardioversion Code(s): I48.91 - UNSPECIFIED ATRIAL FIBRILLATION; I48.92 - UNSPECIFIED ATRIAL FLUTTER (4) Diabetes mellitus Assessment/Plan: on meds stable Code(s): E11.9 - TYPE 2 DIABETES MELLITUS WITHOUT COMPLICATIONS Qualifiers: Diabetes mellitus type: type 2 Diabetes mellitus complication status: without complication Diabetes mellitus fci insulin use: without fci use Qualified Code(s): E11.9 - Type 2 diabetes mellitus without complications (5) HTN (hypertension) Code(s): I10 - ESSENTIAL (PRIMARY) HYPERTENSION Qualifiers: Hypertension type: essential hypertension Qualified Code(s): I10 - Essential (primary) hypertension
[2017-11-10] MEDS ORDERED: WARFARIN NA 3 MG TABLET PO ONE (18:00)
[2017-11-10] MEDS: ATORVASTATIN CA 40 MG TABLET (FP) PO SCH (21:39)
[2017-11-10 22:36] LABS: INR 1.48 (0.82-1.09); PROTHROMBIN TIME (PATIENT) 16.7 SEC (9.98-11.88)
[2017-11-11 06:26] VITALS: TEMP 97.7
[2017-11-11] MEDS: metFORMIN HCL 500 MG TABLET (FP) PO SCH (06:52)
[2017-11-11] MEDS ORDERED: PT OWN MED DRAWER 7, Y5N ONE ×3 (07:00→14:52)
[2017-11-11 07:28] VITALS: BP 114/67; PULSE 69
[2017-11-11 07:55] LABS: BASOPHIL 1.1 % (0-2.0); EOSINOPHIL 2.3 % (0-4.5); MCHC 31.3 g/dl (32.0-36.0); MEAN CELL VOLUME 63.3 fl (80-96); MEAN PLT VOLUME 8.4 fl (7.5-11.1); NEUTROPHILS 74.8 % (42.8-82.8); PLATELET COUNT 581 K/MM3 (134-434); RDW 20.5 % (11.6-15.6); WHITE BLOOD COUNT 12.5 K/mm3 (4.0-10.0)
[2017-11-11 07:57] LABS: MCH 19.8 pg (25.7-33.7)
[2017-11-11 08:49] LABS: INR 1.46 (0.82-1.09); PROTHROMBIN TIME (PATIENT) 16.5 SEC (9.98-11.88)
[2017-11-11] MEDS: LOSARTAN POTASSIUM 25 MG TABLET PO SCH (09:45)
[2017-11-11] MEDS: DOXYCYCLINE INJECTION 100 MG in DEXTROSE 5%-WATER - 100 ML IVPB SCH (09:45)
[2017-11-11] MEDS: METOPROLOL TARTRATE 50 MG TABLET (FP) PO SCH (09:45)
[2017-11-11] MEDS: PANTOPRAZOLE 40 MG TABLET (FP) PO SCH (09:45)
[2017-11-11] MEDS: TICAGRELOR 90 MG TABLET PO SCH (09:55)
[2017-11-11] MEDS ORDERED: FUROSEMIDE 20 MG TABLET (FP) PO SCH (10:00)
--- NOTE | 2017-11-11 12:28 | PN ---
Progress Note, Physician Chief Complaint: Remains in sinus rhythm post synchronized cardioversion Sotalol discontinued due to QT prolongation now on Metoprolol History of Present Illness: Patient was seen and examined. Awake and alert. Chart was reviewed Denies chest pain or SOB - Current Medication List Current Medications: Active Medications Acetaminophen (Tylenol -) 650 mg PO Q6H PRN PRN Reason: FEVER OR PAIN Last Admin: 11/09/17 20:35 Dose: 650 mg Atorvastatin Calcium (Lipitor -) 40 mg PO HS [facility] Last Admin: 11/10/17 21:39 Dose: 40 mg Diltiazem HCl (Cardizem Cd -) 360 mg PO DAILY [facility] Last Admin: 11/11/17 09:45 Dose: 360 mg Furosemide (Lasix -) 20 mg PO DAILY [facility] Last Admin: 11/11/17 09:45 Dose: 20 mg Doxycycline Hyclate 100 mg/ (Dextrose) 100 mls @ 50 mls/hr IVPB BID [facility] Last Admin: 11/11/17 09:45 Dose: 50 mls/hr Losartan Potassium (Cozaar -) 25 mg PO DAILY [facility] Last Admin: 11/11/17 09:45 Dose: 25 mg Metformin HCl (Glucophage -) 500 mg PO BIDAC [facility] Last Admin: 11/11/17 06:52 Dose: 500 mg Methimazole (Tapazole -) 5 mg PO MoTuWeThFr@1000 [facility] Last Admin: 11/10/17 10:14 Dose: 5 mg Metoprolol Tartrate (Lopressor -) 50 mg PO BID [facility] Last Admin: 11/11/17 09:45 Dose: 50 mg Pantoprazole Sodium (Protonix -) 40 mg PO DAILY [facility] Last Admin: 11/11/17 09:45 Dose: 40 mg Ticagrelor (Brilinta -) 90 mg PO BID [facility] Last Admin: 11/10/17 21:39 Dose: 90 mg - Objective Vital Signs: Vital Signs Temperature 97.7 F 11/11/17 07:25 Pulse Rate 69 11/11/17 07:25 Respiratory Rate 20 11/11/17 07:28 Blood Pressure 114/67 11/11/17 07:25 O2 Sat by Pulse Oximetry (%) 95 11/11/17 07:28 Constitutional: Yes: Well Nourished Eyes: Yes: Conjunctiva Clear, PERRL HENT: Yes: Atraumatic Neck: Yes: Supple Cardiovascular: Yes: Regular Rate and Rhythm, S1, S2 Respiratory: Yes: CTA Bilaterally Gastrointestinal: Yes: Normal Bowel Sounds, Soft. No: Tenderness Edema: No Labs: CBC, BMP 11/11/17 05:05 11/08/17 05:45 INR, PTT INR 1.46 (0.82-1.09) H 11/11/17 08:10 Problem List - Problems (1) CAD (coronary artery disease) Code(s): I25.10 - ATHSCL HEART DISEASE OF [place] CORONARY ARTERY W/O ANG PCTRS Qualifiers: Coronary Disease-Associated Artery/Lesion type: [place] artery [place] vs. transplanted heart: [place] heart Associated angina: without angina Qualified Code(s): I25.10 - Atherosclerotic heart disease of [place] coronary artery without angina pectoris (2) History of percutaneous coronary intervention Code(s): Z98.890 - OTHER SPECIFIED POSTPROCEDURAL STATES (3) HTN (hypertension) Code(s): I10 - ESSENTIAL (PRIMARY) HYPERTENSION Qualifiers: Hypertension type: essential hypertension Qualified Code(s): I10 - Essential (primary) hypertension (4) Hypercholesterolemia Code(s): E78.00 - PURE HYPERCHOLESTEROLEMIA, UNSPECIFIED (5) Diabetes mellitus Code(s): E11.9 - TYPE 2 DIABETES MELLITUS WITHOUT COMPLICATIONS Qualifiers: Diabetes mellitus type: type 2 Diabetes mellitus complication status: without complication Diabetes mellitus care home insulin use: without middle or intermediate school principal use Qualified Code(s): E11.9 - Type 2 diabetes mellitus without complications (6) Obstructive sleep apnea Code(s): G47.33 - OBSTRUCTIVE SLEEP APNEA (ADULT) (PEDIATRIC) (7) COPD (chronic obstructive pulmonary disease) Code(s): J44.9 - CHRONIC OBSTRUCTIVE PULMONARY DISEASE, UNSPECIFIED Qualifiers: COPD type: unspecified COPD Qualified Code(s): J44.9 - Chronic obstructive pulmonary disease, unspecified (8) Hyperthyroidism Code(s): E05.90 - THYROTOXICOSIS, UNSP WITHOUT THYROTOXIC CRISIS OR STORM (9) History of mitral valve replacement with bioprosthetic valve Code(s): Z95.3 - PRESENCE OF XENOGENIC HEART VALVE (10) Atrial fibrillation and flutter Code(s): I48.91 - UNSPECIFIED ATRIAL FIBRILLATION; I48.92 - UNSPECIFIED ATRIAL FLUTTER (11) CHF (congestive heart failure) Code(s): I50.9 - HEART FAILURE, UNSPECIFIED Qualifiers: Congestive heart failure type: combined Congestive heart failure chronicity : acute on chronic Qualified Code(s): I50.43 - Acute on chronic combined systolic (congestive) and diastolic (congestive) heart failure (12) Pneumonia Code(s): J18.9 - PNEUMONIA, UNSPECIFIED ORGANISM Qualifiers: Pneumonia type: due to unspecified organism Laterality: right Lung location: lower lobe of lung Qualified Code(s): J18.1 - Lobar pneumonia, unspecified organism Assessment/Plan 1. Atrial flutter with rapid ventricular response s/p synchronized cardioversion to sinus rhythm 2. Clinical presentation suggests class 2 NYHA classification LV failure due to above rapid heart rate 3. Coronary artery disease. s/p PCI/stent, angina pectoris 4. Mitral valve disease s/p MVR with bioprosthesis 5. Hypertension/hypertensive cardiovascular disease 6. Hypercholesterolemia 7. Type 2 diabetes mellitus 8. COPD 9. Obstructive sleep apnea 10. Leukocytosis with possible URI vs. pneumonia 11. Hyperthyrodism PLAN: 1. Continue Coumadin and keep INR 2-3 2. Continue rate control with Cardizem CD. Continue Metoprolol. Consider AF ablation when she returns to [facility] 3. Continue ASA and Brilinta (if PCI is over 1 year, would change it to maintenance dose of 60 mg BID) 4. Continue Losartan 5. Continue Lipitor 6. Sleep apnea management would be important in also maintaining sinus rhythm 7. Continue with Tapazole for hyperthyroidism and check TFT 8. Antibiotic coverage Once discharged and when she returns to [facility], she should follow up with her brand executive: Dr. Rashard Boyle Further plans are to follow Ramirez Martinez MD
[2017-11-11] MEDS ORDERED: WARFARIN NA 3 MG TABLET PO ONE (14:45)
--- NOTE | 2017-11-11 18:07 | DS ---
Physical Examination Vital Signs: Vital Signs Temperature 97.7 F 11/11/17 07:25 Pulse Rate 69 11/11/17 07:25 Respiratory Rate 20 11/11/17 07:28 Blood Pressure 114/67 11/11/17 07:25 O2 Sat by Pulse Oximetry (%) 95 11/11/17 07:28 Labs: CBC, BMP 11/11/17 05:05 11/08/17 05:45 Discharge Summary Reason For Visit: CONGESTIVE HEART FAILURE; PNEUMONIA Condition: Improved - Instructions Diet, Activity, Other Instructions: Discontinue Sotalol...do not pick prescription for it Resume previous activities without strenuous exercises Follow strict [place] salt, [place] fat, diabetic diet. Follow-up with your Primary Care Physician Aury Guzman and Happy New Year!!! Disposition: HOME - Home Medications Comprehensive Discharge Medication List: Ambulatory Orders Atorvastatin Ca [Lipitor] 40 mg PO HS 11/06/17 Diltiazem HCl [Diltiazem 24Hr Cd] 360 mg PO DAILY 11/06/17 Losartan Potassium 25 mg PO DAILY 11/06/17 Metformin HCl 500 mg PO BID 11/06/17 Methimazole 5 mg PO MOFR 11/06/17 Pantoprazole Sodium [Protonix] 40 mg PO DAILY 11/06/17 Ticagrelor [Brilinta -] 90 mg PO DAILY 11/06/17 Warfarin Sodium 6 mg PO HS 11/06/17 Doxycycline Hyclate 100 mg PO BID #14 capsule 11/10/17 Furosemide [Lasix -] 20 mg PO DAILY #30 tablet 11/10/17 Metoprolol Tartrate [Lopressor -] 50 mg PO BID #60 tablet 11/10/17 DC HOME
--- NOTE | 2017-11-14 01:44 | EKG ---
Test Reason : Blood Pressure : / mmHG Vent. Rate : 080 BPM Atrial Rate : 080 BPM P-R Int : 234 ms QRS Dur : 080 ms QT Int : 422 ms P-R-T Axes : 070 062 075 degrees QTc Int : 486 ms SINUS RHYTHM WITH 1ST DEGREE A-V BLOCK WITH PREMATURE SUPRAVENTRICULAR COMPLEXES AND WITH FREQUENT PREMATURE VENTRICULAR COMPLEXES POSSIBLE LEFT ATRIAL ENLARGEMENT NONSPECIFIC T WAVE ABNORMALITY PROLONGED QT ABNORMAL ECG WHEN COMPARED WITH ECG OF 10-NOV-2017 09:41, LIKELY NO SIGNIFICANT CHANGES WERE SEEN Confirmed by VELVET JAQUEZ MD ([id number]) on 11/14/2017 1:44:13 AM Referred By: Gissell PASCAL Confirmed By:VELVET JAQUEZ MD
--- NOTE | 2017-11-14 01:54 | EKG ---
Test Reason : Blood Pressure : / mmHG Vent. Rate : 080 BPM Atrial Rate : 080 BPM P-R Int : 248 ms QRS Dur : 144 ms QT Int : 464 ms P-R-T Axes : 074 062 066 degrees QTc Int : 535 ms SINUS RHYTHM WITH 1ST DEGREE A-V BLOCK WITH FUSION COMPLEXES POSSIBLE LEFT ATRIAL ENLARGEMENT LEFT BUNDLE BRANCH BLOCK ABNORMAL ECG WHEN COMPARED WITH ECG OF 09-NOV-2017 12:07, FUSION COMPLEXES ARE NOW PRESENT PREMATURE VENTRICULAR COMPLEXES AND FUSION COMPLEX ARE SEEN Confirmed by VELVET JAQUEZ MD ([id number]) on 11/14/2017 1:53:59 AM Referred By: Confirmed By:VELVET JAQUEZ MD
== END 2017-11-11 16:11 | disposition home or self-care (01) | DRG 291 ==
LOC: JER 11:14 → JERBED 15:20 → J4W 21:24
PROVIDERS: ADMIT Internal Medicine; ATTEND Internal Medicine
DX: I11.0 Hypertensive heart disease with heart failure (principal); J18.9 Pneumonia, unspecified organism; I48.92 Unspecified atrial flutter; I50.43 Acute on chronic combined systolic (congestive) and diastolic (congestive) heart failure; E11.9 Type 2 diabetes mellitus without complications; I25.10 Atherosclerotic heart disease of native coronary artery without angina pectoris; E78.5 Hyperlipidemia, unspecified; J44.9 Chronic obstructive pulmonary disease, unspecified; G47.39 Other sleep apnea; I48.91 Unspecified atrial fibrillation; E05.80 Other thyrotoxicosis without thyrotoxic crisis or storm; D72.828 Other elevated white blood cell count; Z79.01 Long term (current) use of anticoagulants; Z87.891 Personal history of nicotine dependence; Z95.5 Presence of coronary angioplasty implant and graft; Z95.2 Presence of prosthetic heart valve
CPT/HCPCS: 36415; 71010-TC; 80048; 80053; 81003; 82550; 83605; 83880; 84484; 85025; 85610; 85730; 87040; 87086; 87804; 93005; 93010; 99283-25